=== PATIENT | male | born 1980 | race Hispanic/Latino ===

== ENCOUNTER 2017-06-06 13:26 | Emergency (ER) | payer OTHER, SELFPAY ==
[2017-06-06] MEDS ORDERED: NA CHLORIDE 0.9% 1,000 ML ONE (14:49)
--- NOTE | 2017-06-06 15:14 | RAD REPORT ---
EXAM DESCRIPTION: RAD - Chest Pa And Lat (2 Views) - 06/06/2017 3:04 pm CLINICAL HISTORY: Cough, sinus infection. COMPARISON: None. FINDINGS: The lungs are clear. The heart is normal in size. No displaced fractures. IMPRESSION: No acute or concerning finding suspected.
--- NOTE | 2017-06-06 16:25 | ER ---
Nurse's Notes [facility] Name: Francesco Marr Age: 36 yrs Sex: Male : 1980 Arrival Date: 06/06/2017 Time: 13:28 Bed 19 Private MD: Diagnosis: Malaise and fatigue;Bronchitis, not specified as acute or chronic Presentation: 06/06 13:35 Presenting complaint: Patient states: "i have been having some sinus congestion but the tw2 fatigue brought me in today, started Monday last week and i am feeling dizzy". Transition of care: patient was not received from another setting of care. Onset: The symptoms/episode began/occurred last week. Anaphylaxis evaluation, no signs or symptoms of anaphylaxis were noted. Onset of symptoms was June 06, 2017. Initial Sepsis Screen: Does the patient meet any 2 criteria? Does the patient have a suspected source of infection? No. Patient's initial sepsis screen is negative. Care prior to arrival: None. 13:35 Method Of Arrival: Ambulatory tw2 13:36 Acuity: LONA 3 tw2 Triage Assessment: 13:36 General: Appears in no apparent distress. Behavior is calm, cooperative, appropriate tw2 for age. Historical: - Allergies: 14:06 No Known Allergies; hj - Home Meds: 14:06 None [Active]; hj - PMHx: 14:06 testicular cancer; hj - PSHx: 14:06 testicle removed; hj - Immunization history:: Adult Immunizations up to date. - Social history:: Smoking status: Patient/guardian denies using tobacco, Patient/guardian denies using alcohol. - Family history:: not pertinent. - Hospitalizations: : No recent hospitalization is reported. Screenin:03 Abuse screen: Denies threats or abuse. Denies injuries from another. Nutritional hj screening: No deficits noted. Tuberculosis screening: No symptoms or risk factors identified. Fall Risk None identified. Assessment: 14:04 Pain: Denies pain. Respiratory: Airway is patent Respiratory effort is even, unlabored, hj Respiratory pattern is regular, symmetrical, Breath sounds are clear. 14:45 Reassessment: Patient and/or family updated on plan of care and expected duration. Pain hj level reassessed. Patient is alert, oriented x 3, equal unlabored respirations, skin warm/dry/pink. awaiting orders;. 15:45 Reassessment: Patient and/or family updated on plan of care and expected duration. Pain hj level reassessed. Patient is alert, oriented x 3, equal unlabored respirations, skin warm/dry/pink. Vital Signs: 13:36 BP 149 / 100; Pulse 114; Resp 20; Temp 98.6(O); Pulse Ox 95% on R/A; Weight 90.72 kg tw2 (R); Height 5 ft. 7 in. (170.18 cm); Pain 0/10; 14:46 BP 133 / 89; Pulse 115; Resp 18; Pulse Ox 100% on R/A; hj 16:03 BP 135 / 90; Pulse 99; Resp 18; Pulse Ox 100% on R/A; hj 13:36 Body Mass Index 31.32 (90.72 kg, 170.18 cm) tw2 ED Course: 13:28 Patient arrived in ED. tw3 13:36 Triage completed. tw2 13:39 Arm band placed on. tw2 13:58 Domingo Godfrey MD is Attending Physician. rn 14:01 Gonzalo Saenz RN is Primary Nurse. hj 14:07 Patient has correct armband on for positive identification. Placed in gown. Bed in low hj position. Call light in reach. Side rails up X 1. 15:01 Initial lab(s) drawn, by mi, sent to lab. Flu and/or RSV swab sent to lab. Strep swab mh5 sent to lab. Inserted saline lock: 22 gauge in right antecubital area, using aseptic technique. Blood collected. 15:02 [place] Screen Profile Sent. 5 15:02 Strep Sent. [facility] 15:02 Flu Sent. [facility] 15:03 X-ray completed. Portable x-ray completed in exam room. Patient tolerated procedure sw well. 15:05 XRAY Chest Pa And Lat (2 Views) In Process Unspecified. EDMS 16:59 No provider procedures requiring assistance completed. IV discontinued, intact, hj bleeding controlled, No redness/swelling at site. Pressure dressing applied. Administered Medications: 14:47 Drug: NS 0.9% 1000 ml Route: IV; Rate: 1000 ml; Site: right antecubital; hj 16:59 Follow up: IV Status: Completed infusion hj Outcome: 16:24 Discharge ordered by . rn 16:59 Discharged to home ambulatory, with family. hj 16:59 Condition: stable 16:59 Discharge instructions given to patient, family, Instructed on discharge instructions, follow up and referral plans. medication usage, Demonstrated understanding of instructions, follow-up care, medications, Prescriptions given X 2. 17:00 Patient left the ED. Signatures: Dispatcher [employer] EDMS Domingo Godfrey MD MD rn Warren, Shannon sw Joaquin, Henry, RN RN hj Wise, Tara, RN RN 2 Becca Schwab [address], [place] tw3 Corrections: (The following items were deleted from the chart) 13:36 13:35 Acuity: LONA 3 tw2 tw 13:39 13:35 Presenting complaint: Patient states: "i have been having some sinus congestion tw2 but the fatigue brought me in today, started Monday last week" tw 13:39 13:36 Acuity: LONA 4 tw2 tw2
--- NOTE | 2017-06-06 16:25 | EDPHYS ---
Physician Documentation [facility] Name: Fracnesco Marr Age: 36 yrs Sex: Male : 1980 Arrival Date: 06/06/2017 Time: 13:28 Bed 19 Private MD: ED Physician Domingo Godfrey HPI: 06/06 16:20 This 36 yrs old Male presents to ER via Ambulatory with complaints of general rn weakness, congestion. 16:20 Reports generalized weakness and cough/congestion, over last weak, family member with rn similar symptoms, reports able to go to work but just feels drained.. Onset: The symptoms/episode began/occurred 1 week(s) ago. Severity of symptoms: At their worst the symptoms were mild in the emergency department the symptoms are unchanged. The patient has not experienced similar symptoms in the past. The patient has not recently seen a physician. Historical: - Allergies: 14:06 No Known Allergies; hj - Home Meds: 14:06 None [Active]; hj - PMHx: 14:06 testicular cancer; hj - PSHx: 14:06 testicle removed; hj - Immunization history:: Adult Immunizations up to date. - Social history:: Smoking status: Patient/guardian denies using tobacco, Patient/guardian denies using alcohol. - Family history:: not pertinent. - Hospitalizations: : No recent hospitalization is reported. ROS: 16:20 Constitutional: Negative for fever, chills, and weight loss, Eyes: Negative for injury, rn pain, redness, and discharge, Neck: Negative for injury, pain, and swelling, Cardiovascular: Negative for chest pain, palpitations, and edema, Respiratory: Negative for wheezing, and pleuritic chest pain, Abdomen/GI: Negative for abdominal pain, nausea, vomiting, diarrhea, and constipation, Back: Negative for injury and pain, MS/Extremity: Negative for injury and deformity, Skin: Negative for injury, rash, and discoloration, Neuro: Negative for headache, numbness, tingling, and seizure. Exam: 16:20 Constitutional: This is a well developed, well nourished patient who is awake, alert, rn and in no acute distress. Head/Face: Normocephalic, atraumatic. Eyes: Pupils equal round and reactive to light, extra-ocular motions intact. Lids and lashes normal. Conjunctiva and sclera are non-icteric and not injected. Cornea within normal limits. Periorbital areas with no swelling, redness, or edema. ENT: no stridor, no oral lesions Neck: Trachea midline, no thyromegaly or masses palpated, and no cervical lymphadenopathy. Supple, full range of motion without nuchal rigidity, or vertebral point tenderness. No Meningismus. Cardiovascular: Regular rate and rhythm with a normal S1 and S2. No gallops, murmurs, or rubs. Normal PMI, no JVD. No pulse deficits. Respiratory: Lungs have equal breath sounds bilaterally, clear to auscultation and percussion. No rales, rhonchi or wheezes noted. No increased work of breathing, no retractions or nasal flaring. Abdomen/GI: Soft, non-tender, with normal bowel sounds. No distension or tympany. No guarding or rebound. No evidence of tenderness throughout. MS/ Extremity: Pulses equal, no cyanosis. Neurovascular intact. Full, normal range of motion. Equal circumference. Neuro: Awake and alert, GCS 15, oriented to person, place, time, and situation. Cranial nerves II-XII grossly intact. Motor strength 5/5 in all extremities. Sensory grossly intact. Cerebellar exam normal. Normal gait. Vital Signs: 13:36 BP 149 / 100; Pulse 114; Resp 20; Temp 98.6(O); Pulse Ox 95% on R/A; Weight 90.72 kg tw2 (R); Height 5 ft. 7 in. (170.18 cm); Pain 0/10; 14:46 BP 133 / 89; Pulse 115; Resp 18; Pulse Ox 100% on R/A; hj 16:03 BP 135 / 90; Pulse 99; Resp 18; Pulse Ox 100% on R/A; hj 13:36 Body Mass Index 31.32 (90.72 kg, 170.18 cm) tw2 MDM: 13:58 Patient medically screened. rn 16:20 Differential Diagnosis mono, flu, pneumonia. 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 Counseling: I had a detailed discussion with the patient and/or guardian regarding: the historical points, exam findings, and any diagnostic results supporting the discharge/admit diagnosis, lab results, radiology results, the need for outpatient follow up, to return to the emergency department if symptoms worsen or persist or if there are any questions or concerns that arise at home. Special discussion: I discussed with the patient/guardian in detail that at this point there is no indication for admission to the hospital. It is understood, however, that if the symptoms persist or worsen the patient needs to return immediately for re-evaluation. 06/06 14:46 Order name: Flu; Complete Time: 16:19 rn 06/06 14:46 Order name: Strep; Complete Time: 16:19 rn 06/06 14:46 Order name: [place] Screen Profile; Complete Time: 16:19 rn 06/06 14:46 Order name: XRAY Chest Pa And Lat (2 Views); Complete Time: 15:16 rn 06/06 15:35 Order name: Throat Culture EDAZ 06/06 14:21 Order name: EKG; Complete Time: 14:21 06/06 14:46 Order name: IV Start; Complete Time: 15:10 rn Administered Medications: 14:47 Drug: NS 0.9% 1000 ml Route: IV; Rate: 1000 ml; Site: right antecubital; 16:59 Follow up: IV Status: Completed infusion hj Disposition: 06/06/17 16:24 Discharged to Home. Impression: Malaise and fatigue, Bronchitis, not specified as acute or chronic. - Condition is Stable. - Discharge Instructions: Acute Bronchitis. - Prescriptions for Zithromax Z- Amado 250 mg Oral Tablet - take 1 tablet by ORAL route as directed for 5 days Day 1 - take two (2) tablets one time. Day 2, 3, 4 , 5 take one (1) tablet once daily.; 6 tablet. Albuterol Sulfate 90 mcg/actuation - inhale 1-2 puff by INHALATION route every 4-6 hours; 1 Inhaler. - Medication Reconciliation Form, Thank You Letter, Antibiotic Education, Prescription Opioid Use, Work release form form. - Follow up: Private Physician; When: As needed; Reason: Recheck today's complaints, Re-evaluation by your physician. - Problem is an ongoing problem. - Symptoms have improved. Signatures: Dispatcher [employer] [facility] Domingo Godfrey MD MD rn Joaquin, Henry, RN RN hj Corrections: (The following items were deleted from the chart) 16:22 16:20 Constitutional: This is a well developed, well nourished patient who is awake, rn alert, and in no acute distress. Head/Face: Normocephalic, atraumatic. Eyes: Pupils equal round and reactive to light, extra-ocular motions intact. Lids and lashes normal. Conjunctiva and sclera are non-icteric and not injected. Cornea within normal limits. Periorbital areas with no swelling, redness, or edema. Neck: Trachea midline, no thyromegaly or masses palpated, and no cervical lymphadenopathy. Supple, full range of motion without nuchal rigidity, or vertebral point tenderness. No Meningismus. Cardiovascular: Regular rate and rhythm with a normal S1 and S2. No gallops, murmurs, or rubs. Normal PMI, no JVD. No pulse deficits. Respiratory: Lungs have equal breath sounds bilaterally, clear to auscultation and percussion. No rales, rhonchi or wheezes noted. No increased work of breathing, no retractions or nasal flaring. Abdomen/GI: Soft, non-tender, with normal bowel sounds. No distension or tympany. No guarding or rebound. No evidence of tenderness throughout. MS/ Extremity: Pulses equal, no cyanosis. Neurovascular intact. Full, normal range of motion. Equal circumference. Neuro: Awake and alert, GCS 15, oriented to person, place, time, and situation. Cranial nerves II-XII grossly intact. Motor strength 5/5 in all extremities. Sensory grossly intact. Cerebellar exam normal. Normal gait. rn
[2017-06-06 17:04] VITALS: TEMP 98.6
[2017-06-06 17:05] VITALS: O2SAT 100
[2017-06-06 17:06] VITALS: BP 135/90
--- NOTE | 2017-06-07 06:58 | EKG ---
Test Date: 2017-06-06 Test Time: 14:21:38 Associate Professor Of Philosophy: STEPHAN MEASUREMENT RESULTS: Intervals: Rate: 108 AK: 144 QRSD: 74 QT: 292 QTc: 391 Parks: P: 59 AK: 144 QRS: -36 T: 55 INTERPRETIVE STATEMENTS: Sinus tachycardia Left axis deviation Abnormal ECG Compared to ECG 09/09/2016 17:36:33 Left-axis deviation now present Sinus rhythm no longer present Electronically Signed On 06-07-17 06:57:58 CDT by Shay Tariq
== END 2017-06-06 17:00 | disposition home or self-care (01) ==
LOC: ER 13:26
DX: J40 Bronchitis, not specified as acute or chronic (principal); R53.81 Other malaise; R53.83 Other fatigue; Z85.47 Personal history of malignant neoplasm of testis
CPT/HCPCS: 36415; 71046; 86308; 87070; 87081; 87804; 93005; 96360; 96361; 99284; J7030

== ENCOUNTER 2019-07-14 02:14 | Emergency (ER) | payer OTHER, SELFPAY ==
--- OUTSIDE RECORDS SUMMARY | 2019-07-14 02:23 | XMS REPORT | Summary of Care ---
:1980 Author Organization [facility] - [facility] Address [address] [place] [id number] Care Team Providers Name Role Phone Pcp, Does Not Have A Primary Care Provider Reason for Referral Radiology Services (STAT) Status Reason Specialty Diagnoses / Referred By Referred To Procedures Contact Contact New Request Diagnostic Diagnoses Chest pain, unspecified type Micheline Escobar Radiology Procedures Chest 1 View J, DO [address] [place] [id number] Reason for Visit Reason Comments Chest Pain Auth/Cert Status Reason Specialty Diagnoses / Referred By Referred To Procedures Contact Contact Emergency Medicine Diagnoses CHEST PAIN [facility] [address] [place] [address] [place] [phone] Fax: Encounter Details Date Type Department Care Team Description 04/17/2019 Emergency [facility]-Emergency Micheline Escobar, Chest p ain, Department DO unspecified type [address] (Primary Dx) [address] [phone] Allergies No Known Allergiesdocumented as of this encounter (statuses as of 04/17/2019) Medications Medication Sig Dispensed Refills Start Date End Date Status ibuprofen (MOTRIN) 600 Take 1 Tab by 21 Tab 0 09/10/2014 Active mg tablet mouth every 8 (eight) hours as needed for Pain (scale 4-6). GUAIFENESIN/PSEUDOEPHE Take by mouth. 0 Active DRNE HCL (MUCINEX D ORAL) documented as of this encounter (statuses as of 04/17/2019) Active Problems No known active problemsdocumented as of this encounter (statuses as of 04/17/2019) Social History Tobacco Use Types Packs/Day Years Used Date Never Smoker Smokeless Tobacco: Never Used Alcohol Use Drinks/Week oz/Week Comments Yes occasionally Sex Assigned at Date Recorded Not on file Job Start Date Occupation Industry Not on file Not on file Not on file Travel History Travel Start Travel End No recent travel history available. documented as of this encounter Last Filed Vital Signs Vital Sign Reading Time Taken Comments Blood Pressure 129/81 04/17/2019 1:00 AM [employer] Pulse 81 04/17/2019 1:00 AM [employer] Temperature 37.2 C (98.9 F) 04/17/2019 12:22 AM [employer] Respiratory Rate 17 04/17/2019 1:00 AM [employer] Oxygen Saturation 97% 04/17/2019 1:00 AM [employer] Inhaled Oxygen Concentration - - Weight 99.8 kg (220 lb) 04/17/2019 12:22 AM [employer] Height - - Body Mass Index 34.46 08/08/2016 6:13 PM CDT documented in this encounter Discharge Instructions Micheline Lopez DO - 04/17/2019DIAGNOSIS 1. Chest Pain NO LIFE-THREATENING FINDINGS ON TODAY'S EXAM. PROCEDURES IN THE ER TODAY: Chest Xray Blood work EKG MEDICATIONS ADMINISTERED IN THE ER TODAY: Toradol YOUR PRESCRIPTIONS AND [id number] MEDICATION RECOMMENDATIONS: None SPECIAL CARE INSTRUCTIONS: None FOLLOW-UP RECOMMENDATIONS: RECOMMEND FOLLOW-UP WITH A PRIMARY CARE PROVIDER OR SPECIALIST IN 2-5 DAYS, ESPECIALLY IF NO IMPROVEMENT IN SYMPTOMS. TO FOLLOW-UP WITHIN THE [facility], TRY THESE OPTIONS (CLINIC APPOINTMENTS AVAILABLE ON [id number] BASIS): 1. SCHEDULE AN APPOINTMENT ONLINE AT [email or web address] 2. OR CALL THE [facility] ACCESS CENTER AT OR 3. OR CALL YOUR [facility] PHYSICIAN'S OFFICE DIRECTLY IF YOU ARE ALREADY AN ESTABLISHED [facility] PATIENT. OR, YOU MAY FOLLOW-UP WITH A PROVIDER OF YOUR CHOICE, SUCH : 1. A PHYSICIAN OF YOUR CHOICE 2. [facility] AND [facility], . LOCATIONS IN [facility] 3. [facility], [address], [place]; [phone] RETURN TO ER FOR WORSENING OF SYMPTOMS. AttachmentsThe following attachments cannot be sent through Care Everywhere. Chest Pain, Noncardiac (Tuvaluan)documented in this encounter Plan of Treatment Health Maintenance Due Date Last Done Comments VARICELLA VACCINES (1 of 2 - 06/17/1983 2-dose childhood series) DTaP,Tdap,and Td Vaccines ( - 1993 Tdap) INFLUENZA VACCINE (#1) 2018 PNEUMOCOCCAL 0-64 YEARS COMBINED Aged Out No longer eligible based on SERIES patient's age to complete this topic documented as of this encounter Procedures Procedure Name Priority Date/Time Associated Diagnosis Comme nts XR CHEST 1 VW STAT 04/17/2019 12:52 Chest pain, Results fo r this AM [employer] unspecified type procedure a re in the results section. CBC WITH DIFFERENTIAL STAT 04/17/2019 12:34 Chest pain, Re sults for this AM [employer] unspecified type procedure a re in the results section. CBC WITH DIFFERENTIAL Routine 04/17/2019 12:34 Chest pain, Re sults for this AM [employer] unspecified type procedure a re in the results section. BASIC METABOLIC PANEL STAT 04/17/2019 12:34 Chest pain, Re sults for this (NA, K, CL, CO2, AM [employer] unspecified type procedu re are in GLUCOSE, BUN, the results CREATININE, CA) section. TROPONIN I STAT 04/17/2019 12:34 Chest pain, Results for this AM [employer] unspecified type procedure a re in the results section. EKG-12 LEAD STAT 04/17/2019 12:31 AM [employer] NOTICE OF PRIVACY Routine 04/17/2019 12:12 PRACTICES AM [employer] CONSENT/REFUSAL FOR Routine 04/17/2019 12:11 DIAGNOSIS AND AM [employer] TREATMENT documented in this encounter Results Chest 1 View (04/17/2019 12:52 AM [employer]) Specimen Impressions Performed At PACS/VR/DOSE No acute cardiopulmonary process. RL: [id number] AFC: [id number] 1: 00 AM Narrative Performed At Patient name: FRANCESCO ARDON PACS/VR/DOSE : 1980 38 years EXAMINATION: XR CHEST 1 VW Ordering Physician: MICHELINE ESCOBAR CLINICAL HISTORY: chest pain COMPARISON: None TECHNIQUE: Single frontal view of the chest was per formed. FINDINGS: Normal lung volumes. No focal infiltrate or consolidat ion. No effusion or pneumothorax. Heart size is normal without edema. Norm al aortic contours. No acute osseous abnormality. Procedure Note [facility], Radiant Results Inft User - 2019 1:01 AM [employer] Patient name: FRANCESCO ARDON : 1980 38 years EXAMINATION: XR CHEST 1 VW Ordering Physician: MICHELINE ESCOBAR CLINICAL HISTORY: chest pain COMPARISON: None TECHNIQUE: Single frontal view of the chest was per formed. FINDINGS: Normal lung volumes. No focal infiltrate or consolidation. No effusion or pneumothorax. Heart size is normal witho ut edema. Normal aortic contours. No acute osseous abnormality. IMPRESSION No acute cardiopulmonary process. RL: [id number] AFC: [id number] Performing Organization Address City/State/Zipcode Phone Number PACS/VR/DOSE CBC WITH DIFFERENTIAL (04/17/2019 12:34 AM [employer]) Pathologist Sig nature WBC 10.10 4.20 - 10.70 [facility] 10*3/L [facility] RBC 6.05 (H) 4.26 - 5.52 [facility] 10*6/L [facility] HGB 18.1 (H) 12.2 - 16.4 [facility] g/dL [facility] HCT 52.9 (H) 38.4 - 49.3 % [facility] MCV 87.4 81.7 - 95.6 fL [facility] MCH 29.9 26.1 - 32.7 pg [facility] MCHC 34.2 31.2 - 35.0 [facility] g/dL [facility] RDW-SD 43.4 38.5 - 51.6 fL [facility] RDW-CV 13.8 12.1 - 15.4 % [facility] PLT 240 150 - 328 [facility] 10*3/L [facility] MPV 8.4 (L) 9.8 - 13.0 fL [facility] NRBC/100 WBC 0.0 0.0 - 10.0 /100 [facility] WBCs [facility] NRBC x10^3 <0.01 10*3/L [facility] GRAN MAT (NEUT) % 64.7 % [facility] IMM GRAN % 0.60 % [facility] LYMPH % 25.1 % [facility] MONO % 8.6 % [facility] EOS % 0.6 % [facility] BASO % 0.4 % [facility] GRAN MAT x10^3(ANC) 6.53 1.99 - 6.95 [facility] 10*3/uL [facility] IMM GRAN x10^3 0.06 0.00 - 0.06 [facility] 10*3/uL [facility] LYMPH x10^3 2.54 1.09 - 3.23 [facility] 10*3/uL [facility] MONO x10^3 0.87 0.36 - 1.02 [facility] 10*3/uL [facility] EOS x10^3 0.06 0.06 - 0.53 [facility] 10*3/uL [facility] BASO x10^3 0.04 0.01 - 0.09 [facility] 103/uL [facility] Specimen Blood - VENOUS Performing Organization Address City/State/Zipcode Phone Number [facility] CLIA: [id number], [address] [place] [address] Troponin I (04/17/2019 12:34 AM [employer]) Pathologist Sig nature TROPONIN I 0.007 <=0.034 ng/mL [facility] Specimen Blood - VENOUS Narrative Performed At Equal or Less than 0.034 ng/ml---Normal [facility] Note: Cardiac troponin begins to rise 3-4 hours after the onset of ischemia. Repeat in 4-6 hours if the sample was drawn within 3-4 hours of the onset of the symptom and found normal. Between 0.035 and 0.120 ng/mL--- Borderline. Questionable myocardial injury or necros is Note: Serial measurement may be necessary to confirm or exclude the diagnosis of myocardial injury or necrosis; Clinical correlation (symptoms, EKGs, imaging studies, and others) required; Repeat in 4-6 hours if clinically indicated. Equal or Higher than 0.121 ng/mL---Abnormal. Myocardial Injury or Necrosis Likely Biotin has been reported to cause a negative bias, interpret results relative to patient's use of biotin. Performing Organization Address City/State/Zipcode Phone Number [facility] CLIA: [id number], [address] [place] [address] Basic Metabolic Panel (NA, K, CL, CO2, GLUCOSE, BUN, CREATININE, CA) (04/17/2019 12:34 AM [employer]) NA 138 135 - 145 [facility] mmol/L [facility] K 3.7 3.5 - 5.0 [facility] mmol/L [facility] CL 105 98 - 108 mmol/L [facility] CO2 TOTAL 25 23 - 31 mmol/L [facility] AGAP 8 2 - 16 [facility] BUN 21 7 - 23 mg/dL [facility] [place] GLUCOSE 112 (H) 70 - 110 mg/dL [facility] [place] [place] CREATININE 1.68 (H) 0.60 - 1.25 [facility] mg/dL [facility] CALCIUM 9.2 8.6 - 10.6 [facility] mg/dL [facility] eGFR Calculation 46.5 mL/min/1.73m2 [facility] ([facility] [place]) eGFR Calculation 56.3 mL/min/1.73m2 [facility] () [facility] Specimen Blood - VENOUS Narrative Performed At Association of Glomerular Filtration Rate (GFR) [facility] and Staging of Kidney Disease* + + +- + | GFR (mL/min/1.73 m2) | With Kidney Damage | Without Kidney Damage + + +- + | >90 | Stage one | Normal + + +- + | 60-89 | Stage two | Decreased GFR + + +- + | 30-59 | Stage three | Stage three + + +- + | 15-29 | Stage four | Stage four + + +- + | <15 (or dialysis) | Stage five | Stage five + + +- + *Each stage assumes the associated GFR level has been in effect for at least three months. Stages 1 to 5, with or without kidney disease, indicate chronic kidney disease. Notes: Determination of stages one and two (with eGFR >59mL/min/1.73 m2) requires estimation of kidney damage for at least three months as defined by structural or functional abnormalities of the kidney, manifested by either: Pathological abnormalities or Markers of kidney damage (including abnormalities in the composition of the blood or urine or abnormalities in imaging tests). Performing Organization Address City/State/Zipcode Phone Number [facility] CLIA: [id number], [address] [place], [place] [address] documented in this encounter Visit Diagnoses Diagnosis Chest pain, unspecified type - Primary documented in this encounter Administered Medications Medication Order MAR Action Action Date Dose Rate Site ketorolac (TORADOL) injection 30 Given 04/17/2019 12:34 AM [employer] 3 0 mg mg 30 mg, Slow IV Push, ONCE, 1 dose, Mon04/17/19 at 0045, ALEXANDRE, science faculty member approving Restricted medication: MICHELINE ESCOBAR documented in this encounter documented as of this encounter"
--- OUTSIDE RECORDS SUMMARY | 2019-07-14 02:23 | XMS REPORT ---
:1980 Author Organization [facility] t Address [address] [place] [place] [address] Care Team Providers Name Role Phone True Redding DO Attending Clinician Problems This patient has no known problems. Allergies, Adverse Reactions, Alerts This patient has no known allergies or adverse reactions. Medications This patient has no known medications. Procedures This patient has no known procedures. Encounters Start End Encounter Admission Attending Care Care Encounter Source Date/Time Date/Time Type Type Clinicians Facility Department ID 2019-04-17 2019-04-17 Emergency Vahid [facility] [id number] 00:20:51 01:34:00 Micheline Aguirre [id number] [place] [id number] [place] [id number] Results This patient has no known results.
[2019-07-14 03:42] LABS: Absolute Lymphocytes (CBC) 1.8 K/uL (0.7-4.9); Basophils % 0.5 % (0-1.3); Lymphocytes % 19.6 % (15.3-44.8); MPV 7.1 fL (7.6-11.3); RBC Red Blood Cell Count 6.03 M/uL (4.33-5.43)
[2019-07-14 04:01] LABS: ALT/SGPT 55 U/L (12-78); AST/SGOT 35 U/L (15-37); Albumin 3.2 g/dL (3.4-5.0); Alkaline Phosphatase 76 U/L (45-117); BUN Blood Urea Nitrogen 12 mg/dL (7-18); Bicarbonate 25 mmol/L (21-32); Bilirubin Direct 0.1 mg/dL (0-0.2); Bilirubin Total 0.3 mg/dL (0.2-1.0); Glucose Level 133 mg/dL (74-106); Magnesium 2.1 mg/dL (1.8-2.4); NT PRO-BNP 25 pg/mL (<125); Potassium 3.9 mmol/L (3.5-5.1); Protein, Total 7.6 g/dL (6.4-8.2); Sodium Level 139 mmol/L (136-145); Troponin (Emerg Dept Use Only) < 0.02 ng/mL (0.0-0.045)
[2019-07-14] MEDS ORDERED: MORPHINE 4 MG/ML SYR ONE (04:11)
[2019-07-14] MEDS ORDERED: ONDANSETRON 4 MG/2 ML VIAL ONE (04:11)
[2019-07-14 04:52] LABS: Barbiturates NEGATIVE (NEGATIVE); Benzodiazepines NEGATIVE (NEGATIVE); Cocaine NEGATIVE (NEGATIVE); METHAMPHETAM NEGATIVE (NEGATIVE); Methadone NEGATIVE (NEGATIVE); Opiates NEGATIVE (NEGATIVE); Phencyclidine NEGATIVE (NEGATIVE); THC Cannibis NEGATIVE (NEGATIVE)
[2019-07-14] MEDS ORDERED: NA CHLORIDE 0.9% 1,000 ML ONE (06:07)
--- NOTE | 2019-07-14 07:15 | RAD REPORT ---
EXAM DESCRIPTION: CT - Chest For Pe Angio - 07/14/2019 7:01 am CLINICAL HISTORY: sob COMPARISON: 2014 TECHNIQUE: Dynamically enhanced axial 3 mm thick images of the chest were obtained during administra tion of <100> mL Isovue 370 IV contrast. Coronal and oblique reconstruction images were generated and reviewed. Exam utilizes a protocol for optimal evaluation of pulmonary arterial tree. Maximum intensity projections 3D imaging was utilized All CT scans are performed using dose optimization technique as appropriate and may include automated exposure control or mA/KV adjustment according to patient size. FINDINGS: A pulmonary embolus is not seen. A thoracic aortic aneurysm is not noted. A pleural effusion is not seen. A pericardial effusion is not seen. A lung consolidation is not present. IMPRESSION: Negative for a pulmonary embolism.
[2019-07-14] MEDS ORDERED: LEVALBUTEROL 1.25 MG/3 ML NEB ONE (07:52)
[2019-07-14] MEDS ORDERED: DIAZEPAM 5 MG TABLET ONE (08:17)
[2019-07-14 09:06] VITALS: TEMP 98.2
[2019-07-14 09:15] VITALS: BP 125/60; O2SAT 99
--- NOTE | 2019-07-14 11:46 | RAD REPORT ---
EXAM DESCRIPTION: Ac Single View07/14/2019 4:01 am CLINICAL HISTORY: Chest pain COMPARISON: 2017 FINDINGS: The lungs appear clear of acute infiltrate. The heart is normal size IMPRESSION: No acute abnormalities displayed
--- NOTE | 2019-07-14 14:05 | EKG ---
Test Date: 2019-07-14 Test Time: 03:14:28 Specimen Collector: BERTO MEASUREMENT RESULTS: Intervals: Rate: 87 DC: 144 QRSD: 84 QT: 328 QTc: 394 [place]: P: 72 DC: 144 QRS: -25 T: 37 INTERPRETIVE STATEMENTS: Normal sinus rhythm Normal ECG Electronically Signed On 07-14-19 14:04:40 CDT by Yovanny Mendoza
--- NOTE | 2019-07-15 18:44 | EDPHYS ---
Physician Documentation [facility] Name: Francesco Marr Age: 39 yrs Sex: Male : 1980 Arrival Date: 07/14/2019 Time: 02:16 Bed 7 Private MD: ED Physician Vince Lackey HPI: 07/13 04:38 This 39 yrs old Male presents to ER via Ambulatory with complaints of mh7 Shortness Of Breath. 04:38 The patient has shortness of breath at rest. Onset: The symptoms/episode began/occurred mh7 yesterday. Duration: The symptoms are intermittent, with no pattern. The patient's shortness of breath is aggravated by nothing, is alleviated by nothing. Associated signs and symptoms: Pertinent positives: chest pain, Pertinent negatives: non-productive cough, productive cough, diaphoresis, dizziness, fever, hemoptysis, loss of consciousness, nausea, numbness in extremities, visual changes, vomiting. Severity of symptoms: At their worst the symptoms were moderate yesterday, in the emergency department the symptoms have improved mildly. Historical: - Allergies: 03:08 No Known Allergies; rr5 - Home Meds: 03:08 Hydroxyzine Oral [Active]; rr5 - PMHx: 03:08 testicular cancer; Anxiety; Sleep Apnea; rr5 - PSHx: 03:08 testicle removed; rr5 - Immunization history:: Adult Immunizations not up to date. - Social history:: Smoking status: unknown Patient uses alcohol, occasionally. Patient/guardian denies using street drugs. ROS: 04:38 Constitutional: Negative for fever, chills, and weight loss, Eyes: Negative for injury, mh7 pain, redness, and discharge, ENT: Negative for injury, pain, and discharge, Neck: Negative for injury, pain, and swelling, Abdomen/GI: Negative for abdominal pain, nausea, vomiting, diarrhea, and constipation, Back: Negative for injury and pain, : Negative for injury, bleeding, discharge, and swelling, MS/Extremity: Negative for injury and deformity, Skin: Negative for injury, rash, and discoloration, Neuro: Negative for headache, weakness, numbness, tingling, and seizure, Psych: Negative for depression, anxiety, suicide ideation, homicidal ideation, and hallucinations, Allergy/Immunology: Negative for hives, rash, and allergies, Endocrine: Negative for neck swelling, polydipsia, polyuria, polyphagia, and marked weight changes, Hematologic/Lymphatic: Negative for swollen nodes, abnormal bleeding, and unusual bruising. Exam: 04:38 Constitutional: This is a well developed, well nourished patient who is awake, alert, mh7 and in no acute distress. Head/Face: Normocephalic, atraumatic. Eyes: Pupils equal round and reactive to light, extra-ocular motions intact. Lids and lashes normal. Conjunctiva and sclera are non-icteric and not injected. Cornea within normal limits. Periorbital areas with no swelling, redness, or edema. Neck: Trachea midline, no thyromegaly or masses palpated, and no cervical lymphadenopathy. Supple, full range of motion without nuchal rigidity, or vertebral point tenderness. No Meningismus. Chest/axilla: Normal chest wall appearance and motion. Nontender with no deformity. No lesions are appreciated. Cardiovascular: Regular rate and rhythm with a normal S1 and S2. No gallops, murmurs, or rubs. Normal PMI, no JVD. No pulse deficits. Respiratory: Lungs have equal breath sounds bilaterally, clear to auscultation and percussion. No rales, rhonchi or wheezes noted. No increased work of breathing, no retractions or nasal flaring. Abdomen/GI: Soft, non-tender, with normal bowel sounds. No distension or tympany. No guarding or rebound. No evidence of tenderness throughout. Back: No spinal tenderness. No costovertebral tenderness. Full range of motion. Skin: Warm, dry with normal turgor. Normal color with no rashes, no lesions, and no evidence of cellulitis. MS/ Extremity: Pulses equal, no cyanosis. Neurovascular intact. Full, normal range of motion. Neuro: Awake and alert, GCS 15, oriented to person, place, time, and situation. Cranial nerves II-XII grossly intact. Motor strength 5/5 in all extremities. Sensory grossly intact. Cerebellar exam normal. Normal gait. Psych: Awake, alert, with orientation to person, place and time. Behavior, mood, and affect are within normal limits. Vital Signs: 03:08 BP 118 / 70; Pulse 93; Resp 19; Temp 98.2; Pulse Ox 98% ; Weight 90.72 kg; Height 5 ft. rr5 7 in. (170.18 cm); Pain 7/10; 04:25 BP 137 / 82; Pulse 88; Resp 16; Pulse Ox 99% on R/A; rv 04:49 BP 117 / 73; Pulse 75; Resp 16; Pulse Ox 99% on R/A; rr5 05:30 BP 129 / 83; Pulse 97; Resp 14; Pulse Ox 97% on R/A; rv 06:30 BP 135 / 82; Pulse 95; Resp 14; Pulse Ox 96% on R/A; rv 07:18 BP 133 / 67; Pulse 107; Resp 14; Pulse Ox 95% ; sv 08:16 BP 133 / 65; Pulse 86; Resp 22; Pulse Ox 97% on R/A; sv 08:57 BP 125 / 60; Pulse 84; Resp 16; Pulse Ox 99% ; sv 03:08 Body Mass Index 31.32 (90.72 kg, 170.18 cm) rr5 Jens Coma Score: 08:57 Eye Response: spontaneous(4). Verbal Response: oriented(5). Motor Response: obeys sv commands(6). Total: 15. MDM: 03:32 Patient medically screened. [facility] 14:32 Data reviewed: vital signs, nurses notes, lab test result(s), radiologic studies. kdr Counseling: I had a detailed discussion with the patient and/or guardian regarding: the historical points, exam findings, and any diagnostic results supporting the discharge/admit diagnosis, lab results, radiology results, the need for outpatient follow up. 07/13 03:16 Order name: Basic Metabolic Panel; Complete Time: 05:13 07/13 03:16 Order name: CBC with Diff; Complete Time: 05:13 07/13 03:16 Order name: LFT's; Complete Time: 05:13 07/13 03:16 Order name: Magnesium; Complete Time: 05:13 07/13 03:16 Order name: NT PRO-BNP; Complete Time: 05:13 07/13 03:16 Order name: PT-INR; Complete Time: 05:13 07/13 03:16 Order name: Troponin (emerg Dept Use Only); Complete Time: 05:13 07/13 03:16 Order name: XRAY Chest (1 view) rr5 07/13 03:41 Order name: UDS; Complete Time: 05:13 7 07/13 05:13 Order name: CPK; Complete Time: 05:54 7 07/13 06:36 Order name: CT Chest For PE Angio; Complete Time: 07:53 7 07/13 08:08 Order name: Troponin (emerg Dept Use Only); Complete Time: 08:43 sv 07/13 03:16 Order name: EKG; Complete Time: 03:17 rr5 07/13 03:16 Order name: Cardiac monitoring; Complete Time: 03:19 rr5 07/13 03:16 Order name: EKG - Nurse/Tech; Complete Time: 03:19 rr5 07/13 03:16 Order name: IV Saline Lock; Complete Time: 03:26 rr5 07/13 03:16 Order name: Labs collected and sent; Complete Time: 03:26 rr5 07/13 03:16 Order name: O2 Per Protocol; Complete Time: 03:19 rr5 07/13 03:16 Order name: O2 Sat Monitoring; Complete Time: 03:19 rr5 Administered Medications: 04:10 Drug: morphine 2 mg {Note: RASS 0.} Route: IVP; Site: right forearm; rv 06:04 Follow up: Response: No adverse reaction; RASS: Alert and Calm (0) rv 04:10 Drug: Zofran (Ondansetron) 4 mg Route: IVP; Site: right forearm; rv 06:04 Follow up: Response: No adverse reaction rv 06:04 Drug: NS 0.9% 1000 ml Route: IV; Rate: 1000 ml; Site: right forearm; rv 07:09 Follow up: IV Status: Completed infusion; IV Intake: 1000ml rv 07:48 Drug: Xopenex 1.25 mg Route: Inhalation; sv 08:15 Drug: Valium 5 mg Route: PO; sv 08:57 Follow up: Response: No adverse reaction; Marked relief of symptoms sv Disposition: 07/14/19 08:43 Discharged to Home. Impression: Shortness of breath, Dyspnea. - Condition is Stable. - Discharge Instructions: Shortness of Breath, Fuxb-lk-Oedi, Generalized Anxiety Disorder. - Prescriptions for Valium 5 mg Oral Tablet - take 1 tablet by ORAL route every 8 hours As needed; 6 tablet. - Medication Reconciliation Form, Thank You Letter, SBAR form form. - Follow up: Private Physician; When: 2 - 3 days; Reason: If symptoms return, Further diagnostic work-up, Recheck today's complaints, Continuance of care, Re-evaluation by your physician. - Problem is an acute exacerbation. - Symptoms have improved. Signatures: Dispatcher [employer] Angelique Andrews RN RN sv Vince Lackey MD MD kdr Orlando Ayala RN RN Yobani Borges RN RN rr5 Robb Arenas MD MD 7 Corrections: (The following items were deleted from the chart) 08:59 08:43 07/14/2019 08:43 Discharged to Home. Impression: Shortness of breath; Dyspnea. sv Condition is Stable. Forms are SBAR form, Medication Reconciliation Form, Thank You Letter, Antibiotic Education, Prescription Opioid Use. Follow up: Private Physician; When: 2 - 3 days; Reason: If symptoms return, Further diagnostic work-up, Recheck today's complaints, Continuance of care, Re-evaluation by your physician. Problem is an acute exacerbation. Symptoms have improved. kdr
--- NOTE | 2019-07-15 18:44 | ER ---
Nurse's Notes [facility] Name: Francesco Marr Age: 39 yrs Sex: Male : 1980 Arrival Date: 07/14/2019 Time: 02:16 Bed 7 Private MD: Diagnosis: Shortness of breath;Dyspnea Presentation: 07/13 02:45 Acuity: LONA 3 sg 03:08 Chief complaint: Patient states: I am having Shortness of breath started yesterday rr5 morning recently diagnose sleep apnea. having chest tightness for 2 days on and off. Coronavirus screen: Proceed with normal triage. Patient denies a cough. Patient reports shortness of breath or difficulty breathing. Patient denies measured and/or subjective temperature greater than 100.4F prior to today's visit. Patient denies travel on a cruise ship or to a country the [facility] currently lists as an affected area. Patient denies contact with known and/or suspected case of COVID-19. Ebola Screen: Patient negative for fever greater than or equal to 101.5 degrees Fahrenheit, and additional compatible Ebola Virus Disease symptoms Patient denies exposure to infectious person. Patient denies travel to an Ebola-affected area in the 21 days before illness onset. Initial Sepsis Screen: Does the patient meet any 2 criteria? No. Patient's initial sepsis screen is negative. Does the patient have a suspected source of infection? No. Patient's initial sepsis screen is negative. Risk Assessment: Do you want to hurt yourself or someone else? Patient reports no desire to harm self or others. Onset of symptoms was July 12, 2019. 03:08 Method Of Arrival: Ambulatory rr5 03:08 Acuity: LONA 3 rr5 Triage Assessment: 04:25 General: Appears comfortable. Respiratory: the patient has mild shortness of breath. rv Historical: - Allergies: 03:08 No Known Allergies; rr5 - Home Meds: 03:08 Hydroxyzine Oral [Active]; rr5 - PMHx: 03:08 testicular cancer; Anxiety; Sleep Apnea; rr5 - PSHx: 03:08 testicle removed; rr5 - Immunization history:: Adult Immunizations not up to date. - Social history:: Smoking status: unknown Patient uses alcohol, occasionally. Patient/guardian denies using street drugs. Screenin:12 Abuse screen: Denies threats or abuse. Denies injuries from another. Nutritional rr5 screening: No deficits noted. Tuberculosis screening: No symptoms or risk factors identified. Fall Risk IV access (20 points). Total Guillen Fall Scale indicates No Risk (0-24 pts). Assessment: 02:45 General: Appears in no apparent distress. uncomfortable, Behavior is calm, cooperative, rr5 appropriate for age. 02:45 Pain: Complains of pain in chest Pain radiates to left neck Pain currently is 7 out of rr5 10 on a pain scale. Quality of pain is described as aching, Pain began gradually, 2-3 days ago. Is intermittent. Neuro: Level of Consciousness is awake, alert, obeys commands, Oriented to person, place, time, situation, Appropriate for age. Cardiovascular: Reports chest pain, Capillary refill < 3 seconds Patient's skin is warm and dry. Rhythm is sinus rhythm. Respiratory: Reports shortness of breath Airway is patent Respiratory effort is even, unlabored, Respiratory pattern is regular, symmetrical, Breath sounds are clear. GI: No signs and/or symptoms were reported involving the gastrointestinal system. : No signs and/or symptoms were reported regarding the genitourinary system. EENT: No signs and/or symptoms were reported regarding the EENT system. Derm: Skin is intact, is healthy with good turgor, Skin temperature is warm. Musculoskeletal: Circulation, motion, and sensation intact. Capillary refill < 3 seconds. 03:20 Reassessment: Patient appears in no apparent distress at this time. No changes from rr5 previously documented assessment. Patient is alert, oriented x 3, equal unlabored respirations, skin warm/dry/pink. 04:50 Reassessment: Patient appears in no apparent distress at this time. Patient is alert, rr5 oriented x 3, equal unlabored respirations, skin warm/dry/pink. awaiting for results. 07:41 General: Appears in no apparent distress. uncomfortable, Behavior is calm, cooperative, sv appropriate for age. Pain: Complains of pain in mid-sternal area. Neuro: Level of Consciousness is awake, alert, obeys commands, Oriented to person, place, time, situation, Appropriate for age Moves all extremities. Full function. Cardiovascular: Rhythm is sinus rhythm. Respiratory: Reports shortness of breath at rest Informed Dr Lackey, pt's SOB has not improved, medication order given. Airway is patent Respiratory effort is even, unlabored, Respiratory pattern is regular, symmetrical. Derm: Skin is pink, warm \T\ dry. Musculoskeletal: Range of motion: intact in all extremities. 07:54 Reassessment: Breathing tx done at this time, reports feeling the same. sv 08:10 Reassessment: Repeat troped sent. sv 08:10 Reassessment: Pt reports this his SOB has improved some and can breathe a little better sv after the breathing tx. 08:57 Reassessment: Patient appears in no apparent distress at this time. Patient and/or sv family updated on plan of care and expected duration. Pain level reassessed. Patient is alert, oriented x 3, equal unlabored respirations, skin warm/dry/pink. Patient states feeling better. Patient states symptoms have improved. Vital Signs: 03:08 BP 118 / 70; Pulse 93; Resp 19; Temp 98.2; Pulse Ox 98% ; Weight 90.72 kg; Height 5 ft. rr5 7 in. (170.18 cm); Pain 7/10; 04:25 BP 137 / 82; Pulse 88; Resp 16; Pulse Ox 99% on R/A; rv 04:49 BP 117 / 73; Pulse 75; Resp 16; Pulse Ox 99% on R/A; rr5 05:30 BP 129 / 83; Pulse 97; Resp 14; Pulse Ox 97% on R/A; rv 06:30 BP 135 / 82; Pulse 95; Resp 14; Pulse Ox 96% on R/A; rv 07:18 BP 133 / 67; Pulse 107; Resp 14; Pulse Ox 95% ; sv 08:16 BP 133 / 65; Pulse 86; Resp 22; Pulse Ox 97% on R/A; sv 08:57 BP 125 / 60; Pulse 84; Resp 16; Pulse Ox 99% ; sv 03:08 Body Mass Index 31.32 (90.72 kg, 170.18 cm) rr5 Jens Coma Score: 08:57 Eye Response: spontaneous(4). Verbal Response: oriented(5). Motor Response: obeys sv commands(6). Total: 15. ED Course: 02:16 Patient arrived in ED. ds1 02:45 Triage completed. sg 03:01 Robb Arenas MD is Attending Physician. mh7 03:05 Jamie, Orlando, RN is Primary Nurse. rv 03:12 Arm band placed on right wrist. rr5 03:12 Patient has correct armband on for positive identification. Placed in gown. Bed in low rr5 position. Call light in reach. Side rails up X2. ekg monitor tech on. Pulse ox on. NIBP on. 03:27 Initial lab(s) drawn, by me, sent to lab. EKG done, by ED staff, reviewed by Robb Arenas MD. Inserted saline lock: 18 gauge in right forearm, using aseptic technique. Blood collected. 04:02 XRAY Chest (1 view) In Process Unspecified. EDMS 07:01 CT Chest For PE Angio In Process Unspecified. EDMS 07:04 Primary Nurse role handed off by Orlando Ayala RN sv 07:04 Angelique Moralez RN is Primary Nurse. sv 07:21 Attending Physician role handed off by Robb Arenas MD kdr 07:21 Vince Lackey MD is Attending Physician. kdr 08:58 No provider procedures requiring assistance completed. IV discontinued, intact, sv bleeding controlled, No redness/swelling at site. Pressure dressing applied. Administered Medications: 04:10 Drug: morphine 2 mg {Note: RASS 0.} Route: IVP; Site: right forearm; rv 06:04 Follow up: Response: No adverse reaction; RASS: Alert and Calm (0) rv 04:10 Drug: Zofran (Ondansetron) 4 mg Route: IVP; Site: right forearm; rv 06:04 Follow up: Response: No adverse reaction rv 06:04 Drug: NS 0.9% 1000 ml Route: IV; Rate: 1000 ml; Site: right forearm; rv 07:09 Follow up: IV Status: Completed infusion; IV Intake: 1000ml rv 07:48 Drug: Xopenex 1.25 mg Route: Inhalation; sv 08:15 Drug: Valium 5 mg Route: PO; sv 08:57 Follow up: Response: No adverse reaction; Marked relief of symptoms sv Intake: 07:09 IV: 1000ml; Total: 1000ml. rv Outcome: 08:43 Discharge ordered by . kdr 08:58 Discharged to home ambulatory, pt has a ride home sv 08:58 Condition: stable 08:58 Discharge instructions given to patient, Instructed on discharge instructions, follow up and referral plans. medication usage, Demonstrated understanding of instructions, follow-up care, medications, Prescriptions given X 1. 08:59 Patient left the ED. sv Signatures: Dispatcher [employer] Angelique Andrews RN RN sv Taj Webb RN RN Vince Lakcey MD MD [facility] Sierra, Peggy ds1 Orlando Ayala RN RN Yobani Borges RN RN rr5 Robb Arenas MD MD 7 Corrections: (The following items were deleted from the chart) 07:22 07:18 BP 133 / 67; Pulse 107bpm; Resp 14bpm; sv sv 07:48 07:41 Respiratory: Airway is patent Respiratory effort is even, unlabored, Respiratory sv pattern is regular, symmetrical, sv
== END 2019-07-14 08:59 | disposition home or self-care (01) ==
LOC: ER 02:14
DX: R06.00 Dyspnea, unspecified (principal); Z85.47 Personal history of malignant neoplasm of testis
CPT/HCPCS: 96361; 93005; 85025; 80048; 36415; 83735; 82550; 85610; 80076; 80307 ×8; 84484 ×2; 83880; 71275; 71045; 96375; 96374; 99285; Q9967; J7030; J2405

== ENCOUNTER 2019-10-02 17:26 | Emergency (ER) | payer OTHER, SELFPAY ==
--- OUTSIDE RECORDS SUMMARY | 2019-10-02 17:28 | XMS REPORT | Summary of Care ---
:1980 Author Organization [facility] Address [address] [place] [address] Care Team Providers Name Role Phone Melissa, Medical [facility] Primary Care Provider [phone] Reason for Referral Radiology Services (STAT) Status Reason Specialty Diagnoses / Referred By Referred To Procedures Contact Contact New Request Diagnostic Diagnoses Shortness of breath Chest pain, unspecified type Tachypnea Vince Gillespie, Radiology Procedures XR CHEST 1 VW COVID XR CHEST 1 VW [employer] [address] [place] [address] MRI/CAT Scan (STAT) Status Reason Specialty Diagnoses / Referred By Referred To Procedures Contact Contact New Request Diagnostic Diagnoses Shortness of breath Chest pain, unspecified type Tachypnea Vince Gillespie, Radiology Procedures CT CHEST PULMONARY ANGIOGRAM [employer] [address] [place] [phone] Reason for Visit Reason Comments Shortness of Breath Chest Pain Auth/Cert Status Reason Specialty Diagnoses / Referred By Referred To Procedures Contact Contact Emergency Medicine [facility] Dept [address] [place] [address] Fax: Encounter Details Date Type Department Care Team Description 09/13/2019 - Emergency ADC-Emergency Vince Gillespie, NUHA Shortness of breath (Primary Dx); 09/14/2019 Department [address] [facility] Chest pain, unspecified type; [address] [place] [address] [address] ; [address] [phone] [place], [place] [id number] Allergies No Known Allergiesdocumented as of this encounter (statuses as of 09/14/2019) Medications Medication Sig Dispensed Refills Start Date End Date Status ibuprofen (MOTRIN) 600 Take 1 Tab by 21 Tab 0 09/10/2014 Active mg tablet mouth every 8 (eight) hours as needed for Pain (scale 4-6). GUAIFENESIN/PSEUDOEPHED Take by mouth. 0 Active RNE HCL (MUCINEX D ORAL) hydrOXYzine 25 mg Take 1 tablet by 16 tablet 0 09/14/2019 Active tabletIndications: mouth every 6 Anxiety (six) hours as needed for Anxiety. documented as of this encounter (statuses as of 09/14/2019) Active Problems No known active problemsdocumented as of this encounter (statuses as of 09/14/2019) Social History Tobacco Use Types Packs/Day Years Used Date Never Smoker Smokeless Tobacco: Never Used Alcohol Use Drinks/Week oz/Week Comments Yes occasionally Sex Assigned at Date Recorded Not on file Job Start Date Occupation Industry Not on file Not on file Not on file Travel History Travel Start Travel End No recent travel history available. COVID-19 Exposure Response Date Recorded In the last month, have you been in contact with No / Unsure 09/13/2019 10:51 PM CDT someone who was confirmed or suspected to have Coronavirus / COVID-19? documented as of this encounter Last Filed Vital Signs Vital Sign Reading Time Taken Comments Blood Pressure 137/84 09/14/2019 2:00 AM CDT Pulse 77 09/14/2019 2:00 AM CDT Temperature 36.8 C (98.2 F) 09/13/2019 10:54 PM CDT Respiratory Rate 18 09/14/2019 2:00 AM CDT Oxygen Saturation 96% 09/14/2019 2:00 AM CDT Inhaled Oxygen Concentration - - Weight 90.7 kg (200 lb) 09/13/2019 10:54 PM CDT Height 170.2 cm (5' 7") 09/13/2019 10:54 PM CDT Body Mass Index 31.32 09/13/2019 10:54 PM CDT documented in this encounter Discharge Instructions Vince Laurent [employer] - 09/14/2019 DIAGNOSIS ICD-10-CM ICD-9-CM 1. Shortness of breath R06.02 786.05 2. Chest pain, unspecified type R07.9 786.50 3. Tachypnea R06.82 786.06 NO LIFE-THREATENING FINDINGS ON TODAY'S EXAM. SPECIAL CARE INSTRUCTIONS: Stay well hydrated Follow up with PCP Return to ER as needed FOLLOW-UP RECOMMENDATIONS: RECOMMEND FOLLOW-UP WITH A PRIMARY CARE PROVIDER OR SPECIALIST IN 2-5 DAYS, ESPECIALLY IF NO IMPROVEMENT IN SYMPTOMS. TO FOLLOW-UP WITHIN THE [facility], TRY THESE OPTIONS (CLINIC APPOINTMENTS AVAILABLE ON ISBK-TE-TUEL BASIS): 1. SCHEDULE AN APPOINTMENT ONLINE AT WWW.[facility] 2. OR CALL THE [facility] AT OR 3. OR CALL YOUR [facility] PHYSICIAN'S OFFICE DIRECTLY IF YOU ARE ALREADY AN ESTABLISHED [facility] PATIENT. OR, YOU MAY FOLLOW-UP WITH A PROVIDER OF YOUR CHOICE, SUCH : 1. A PHYSICIAN OF YOUR CHOICE 2. [facility], . LOCATIONS IN [facility] 3. [facility], [address] [place] [address]; [phone] RETURN TO ER FOR WORSENING OF SYMPTOMS. AttachmentsThe following attachments cannot be sent through Care Everywhere. Shortness of Breath (Dyspnea) (Indian)Chest Pain, Uncertain Cause (Indian) Anxiety, Your Body's Response to (Indian)documented in this encounter Plan of Treatment Name Type Priority Associated Diagnoses Date/Ti nh CT CHEST PULMONARY IMAGING STAT Shortness of breath 09/14/2019 12:19 AM ANGIOGRAM Chest pain, unspecified CDT type Tachypnea Name Type Priority Associated Diagnoses Order S chedule XR CHEST 1 VW IMAGING STAT ONCE for 1 Occ urrences starting 09/13/2019 unti l 09/13/2019 Health Maintenance Due Date Last Done Comments VARICELLA VACCINES (1 of 2 - 06/17/1983 2-dose childhood series) DTaP,Tdap,and Td Vaccines (1 - 1993 Tdap) Depression Screening 1994 INFLUENZA VACCINE (#1) 2019 PNEUMOCOCCAL 0-64 YEARS COMBINED Aged Out No longer eligible based on SERIES patient's age to complete this topic documented as of this encounter Procedures Procedure Name Priority Date/Time Associated Diagnosis Comme nts XR CHEST 1 VW COVID STAT 09/13/2019 11:26 PM Shortnes s of breath Results for this CDT Chest pain, procedure are i n unspecified type the results Tachypnea section. COVID-19 (ID NOW STAT 09/13/2019 11:09 PM Shortness o f breath Results for this RAPID TESTING) CDT Chest pain, procedure are in unspecified type the results Tachypnea section. CBC WITH DIFF STAT 09/13/2019 11:09 PM Shortness of breath Results for this CDT Chest pain, procedure are i n unspecified type the results Tachypnea section. COMP. METABOLIC STAT 09/13/2019 11:09 PM Shortness of breath Results for this PANEL (33866) CDT Chest pain, procedure are in unspecified type the results Tachypnea section. TROPONIN I STAT 09/13/2019 11:09 PM Shortness of breath Results for this CDT Chest pain, procedure are i n unspecified type the results Tachypnea section. EKG-12 LEAD ALEXANDRE 09/13/2019 11:07 PM CDT CONSENT/REFUSAL FOR Routine 09/13/2019 10:38 PM DIAGNOSIS AND CDT TREATMENT documented in this encounter Results XR CHEST 1 VW COVID (09/13/2019 11:26 PM CDT) Specimen Impressions Performed At PACS/VR/DOSE No acute cardiopulmonary abnormality. Sp ecifically, no radiographic findings to suggest COVID-19 pneumonia. Disclaimer: Generally, the findings on c hest imaging in COVID-19 are not specific, and overlap with other infecti ons, including influenza, H1N1, SARS and MERS. According to the Centers for Disease Control (CDC) and recent statement of the [employer], viral testing remai ns the only specific method of diagnosis. Confirmation with the viral test is required, even if radiologic findings are suggestive of CO VID-[address] Preliminary Report Dictated by Resident: Elio Weinberg MD., have review ed this study and agree with the above report. Narrative Performed At PROCEDURE: CHEST, SINGLE VIEW PACS/VR/DOSE CLINICAL INDICATION: 39 years Male prese nting with shortness of breath COMPARISON: Chest radiographs 04/17/2019. Technique: Single AP view of the chest. FINDINGS: Lungs: The lungs are clear. No focal con solidation, pleural effusion, or pneumothorax. Mediastinum: The cardiomediastinal silho uette is normal in size. Osseous structures: No acute bony abnorm ality. Procedure Note [facility], Radiant Results Inft User - 2019 1:42 AM CDT PROCEDURE: CHEST, SINGLE VIEW CLINICAL INDICATION: 39 years Male prese nting with shortness of breath COMPARISON: Chest radiographs 04/17/2019. Technique: Single AP view of the chest. FINDINGS: Lungs: The lungs are clear. No focal con solidation, pleural effusion, or pneumothorax. Mediastinum: The cardiomediastinal silho uette is normal in size. Osseous structures: No acute bony abnorm ality. IMPRESSION No acute cardiopulmonary abnormality. Sp ecifically, no radiographic findings to suggest COVID-19 pneumonia. Disclaimer: Generally, the findings on c hest imaging in COVID-19 are not specific, and overlap with other infecti ons, including influenza, H1N1, SARS and MERS. According to the Centers for Disease Con trol (CDC) and recent statement of the [employer], viral testing remains the only specific method of diagnosis. Confirmation with t he viral test is required, even if radiologic findings are suggestive of CO VID-[address]. Preliminary Report Dictated by Resident: Elio Weinberg MD., have reviewe d this study and agree with the above report. Performing Organization Address City/State/Zipcode Phone Number PACS/VR/DOSE COVID-19 (ID NOW RAPID TESTING) (09/13/2019 11:09 PM CDT) SARS-CoV-2 Rapid ID Not Detected Not Detected [facility] Specimen Swab - NASOPHARYNGEAL SWAB Narrative Performed At MD NOW COVID-19 Assay is an isothermal nucleic [facility] acid amplification test intended for the qualitative detection of nucleic acid from SARS-CoV-2 viral RNA in nasopharyngeal (WAREHOUSE ATTENDANT) specimens. It is used under Emergency Use Authorization (EUA) by FDA. The limit of detection (LOD) of the assay is 125 Genome Equivalents/mL. A positive result is indicative of the presence of SARS-CoV-2 RNA. Clinical correlation with patient history and other diagnostic information is necessary to determine patient infection status. A negative (Not Detected) result does not preclude SARS-CoV-2 infection. In patients with clinical symptoms and other tests that are consistent with SARS-CoV-2 infection, negative results should be treated as presumptive negative and a new specimen should be tested with alternative PCR molecular test. Invalid: Please collect a new specimen for repeat patient testing if clinically indicated. Performing Organization Address [facility] Phone Number [facility] CLIA: [id number], [address], [place] [address] TROPONIN I (09/13/2019 11:09 PM CDT) Pathologist Sig nature TROPONIN I <0.012 <=0.034 ng/mL [facility] Specimen Blood - VENOUS Narrative Performed At Equal or Less than 0.034 ng/ml---Normal [facility] Note: Cardiac troponin begins to [...] patient's use of biotin. Performing Organization Address [facility] Phone Number [facility] CLIA: [id number], [address], [place] [address] COMP. METABOLIC PANEL ([id number]) (09/13/2019 11:09 PM CDT) NA 139 135 - 145 [facility] mmol/L [facility] K 4.0 3.5 - 5.0 [facility] mmol/L [facility] CL 106 98 - 108 mmol/L [facility] CO2 TOTAL 25 23 - 31 mmol/L [facility] AGAP 8 2 - 16 [facility] BUN 18 7 - 23 mg/dL [facility] GLUCOSE 127 (H) 70 - 110 mg/dL [facility] CREATININE 1.42 (H) 0.60 - 1.25 [facility] mg/dL [facility] TOTAL BILI 0.6 0.1 - 1.1 mg/dL [facility] CALCIUM 9.1 8.6 - 10.6 [facility] mg/dL [facility] T PROTEIN 8.0 6.3 - 8.2 g/dL [facility] ALBUMIN 4.0 3.5 - 5.0 g/dL [facility] ALK PHOS 74 34 - 122 U/L [facility] ALTv 63 (H) 5 - 50 U/L [facility] AST(SGOT) 36 13 - 40 U/L [facility] eGFR Calculation 56.1 mL/min/1.73m2 [facility] [place]) eGFR Calculation 68.0 mL/min/1.73m2 [facility] () [facility] Specimen Blood - VENOUS Narrative Performed At Association of Glomerular Filtration Rate (GFR) [facility] and Staging of Kidney Disease* + [...] tests). Performing Organization Address City/State/Zipcode Phone Number [facility] CLIA: [id number], [address], [place] [address] CBC WITH DIFF (09/13/2019 11:09 PM CDT) Pathologist Sig nature WBC 11.07 (H) 4.20 - 10.70 [facility] 10*3/L [facility] RBC 6.18 (H) 4.26 - 5.52 [facility] 10*6/L [facility] HGB 18.8 (H) 12.2 - 16.4 [facility] g/dL [facility] HCT 55.4 (H) 38.4 - 49.3 % [facility] MCV 89.6 81.7 - 95.6 fL [facility] MCH 30.4 26.1 - 32.7 pg [facility] MCHC 33.9 31.2 - 35.0 [facility] g/dL [facility] RDW-SD 44.6 38.5 - 51.6 fL [facility] RDW-CV 13.7 12.1 - 15.4 % [facility] PLT 257 150 - 328 [facility] 10*3/L [facility] MPV 8.6 (L) 9.8 - 13.0 fL [facility] NRBC/100 WBC 0.0 0.0 - 10.0 /100 [facility] WBCs [facility] NRBC x10^3 <0.01 10*3/L [facility] GRAN MAT (NEUT) % 60.7 % [facility] IMM GRAN % 1.10 % [facility] LYMPH % 29.2 % [facility] MONO % 7.8 % [facility] EOS % 0.6 % [facility] BASO % 0.6 % [facility] GRAN MAT x10^3(ANC) 6.72 1.99 - 6.95 [facility] 10*3/uL [facility] IMM GRAN x10^3 0.12 (H) 0.00 - 0.06 [facility] 10*3/uL [facility] LYMPH x10^3 3.23 1.09 - 3.23 [facility] 10*3/uL [facility] MONO x10^3 0.86 0.36 - 1.02 [facility] 10*3/uL [facility] EOS x10^3 0.07 0.06 - 0.53 [facility] 10*3/uL [facility] BASO x10^3 0.07 0.01 - 0.09 [facility] 10*3/uL [facility] Specimen Blood - VENOUS Performing Organization Address City/State/Zipcode Phone Number [facility] CLIA: [id number], [address], [place] [address] documented in this encounter Visit Diagnoses Diagnosis Shortness of breath - Primary Chest pain, unspecified type Tachypnea Anxiety Anxiety state, unspecified documented in this encounter Administered Medications Medication Order MAR Action Action Date Dose Rate Site iohexol (OMNIPAQUE 350 BULK-100 Given 09/14/2019 12:14 AM CDT 10 0 mL mL) injection 100 mL 100 mL, Intravenous, ONCE, 1 dose, 09/14/19 at 0030, Routine documented in this encounter Additional Health Concerns Infection Onset Date Last Indicated Resolved Time COVID-19 Rule Out 09/13/2019 09/13/2019 09/13/2019 11: 55 PM CDT documented as of this encounter
--- OUTSIDE RECORDS SUMMARY | 2019-10-02 17:28 | XMS REPORT | Continuity of Care Document ---
:1980 Author Organization [facility] t Address [address] [place] [address] Care Team Providers Name Role Phone Verna BREEN Attending Clinician True Redding DO Attending Clinician Problems This patient has no known problems. Allergies, Adverse Reactions, Alerts This patient has no known allergies or adverse reactions. Medications This patient has no known medications. Procedures This patient has no known procedures. Encounters Start End Encounter Admission Attending Care Care Encounter Source Date/Time Date/Time Type Type Clinicians Facility Department ID 2019-09-13 2019-09-14 [facility] [id number] 22:39:53 02:14:00 Vince Aguirre [id number] [place] [id number] [place] [id number] [id number] 2019-04-17 2019-04-17 [facility] [id number] 00:20:51 01:34:00 Micheline Aguirre [id number] [place] [id number] [place] [id number] [id number] Results This patient has no known results.
[2019-10-02] MEDS ORDERED: NA CHLORIDE 0.9% 1,000 ML ONE (19:50)
[2019-10-02] MEDS ORDERED: METHYLPREDNISOLONE 125 MG INJ ONE (19:50)
[2019-10-02 19:51] LABS: Absolute Lymphocytes (CBC) 2.2 K/uL (0.7-4.9); Basophils % 0.6 % (0-1.3); Hematocrit 58.5 % (39.6-49.0); Lymphocytes % 21.5 % (15.3-44.8); MPV 6.8 fL (7.6-11.3); RBC Red Blood Cell Count 6.59 M/uL (4.33-5.43)
[2019-10-02] MEDS ORDERED: ACETAMINOPHEN 500 MG TAB ONE (19:58)
[2019-10-02 20:07] LABS: Albumin 3.3 g/dL (3.4-5.0); Bilirubin Direct 0.1 mg/dL (0-0.2); Bilirubin Total 0.3 mg/dL (0.2-1.0); Potassium 3.9 mmol/L (3.5-5.1); Protein, Total 8.5 g/dL (6.4-8.2)
--- NOTE | 2019-10-02 23:35 | ER ---
Nurse's Notes [facility] Name: Francesco Marr Age: 39 yrs Sex: Male : 1980 Arrival Date: 10/02/2019 Time: 17:29 Bed 13 Private MD: Diagnosis: Ulcerative colitis Presentation: 10/01 17:35 Chief complaint: Patient states: Abdominal bloating/pain for 2 days. Noticed black ll1 stool today with some mucous in it. Pain to left abdomen, states he had colitis in the past. Coronavirus screen: Client denies travel out of the [place] in the last 14 days. At this time, the client does not indicate any symptoms associated with coronavirus-19. The client reports previous COVID testing was negative. Ebola Screen: Patient denies travel to an Ebola-affected area in the 21 days before illness onset. Initial Sepsis Screen: Does the patient meet any 2 criteria? HR > 90 bpm. Risk Assessment: Do you want to hurt yourself or someone else? Patient reports no desire to harm self or others. Onset of symptoms was October 01, 2019. 17:35 Method Of Arrival: Ambulatory ll1 17:35 Acuity: LONA 3 ll1 19:30 Initial Sepsis Screen: Does the patient have a suspected source of infection? No. vc Patient's initial sepsis screen is negative. Historical: - Allergies: 17:38 No Known Allergies; ll1 - PMHx: 17:38 testicular cancer; Anxiety; Sleep Apnea; colitis; ll1 - PSHx: 17:38 testicle removed; ll1 - Immunization history:: Flu vaccine is not up to date. - Social history:: Smoking status: Patient denies any tobacco usage or history of. Patient/guardian denies using alcohol, street drugs. Screenin:30 Abuse screen: Denies threats or abuse. Nutritional screening: No deficits noted. vc Tuberculosis screening: No symptoms or risk factors identified. Fall Risk None identified. Assessment: 19:30 General: Appears in no apparent distress. comfortable, slender, Behavior is calm, vc cooperative, appropriate for age. Pain: Denies pain. Neuro: Level of Consciousness is awake, alert, obeys commands, Oriented to person, place, time, situation, Appropriate for age. Cardiovascular: Reports fatigue, Capillary refill < 3 seconds. Respiratory: No deficits noted. GI: Reports rectal bleeding, bloody stool. : No signs and/or symptoms were reported regarding the genitourinary system. 20:30 Reassessment: Patient appears in no apparent distress at this time. Patient and/or vc family updated on plan of care and expected duration. Pain level reassessed. Patient is alert, oriented x 3, equal unlabored respirations, skin warm/dry/pink. 21:30 Reassessment: Patient appears in no apparent distress at this time. Patient and/or vc family updated on plan of care and expected duration. Pain level reassessed. Patient is alert, oriented x 3, equal unlabored respirations, skin warm/dry/pink. 22:30 Reassessment: Patient appears in no apparent distress at this time. Patient and/or vc family updated on plan of care and expected duration. Pain level reassessed. Patient is alert, oriented x 3, equal unlabored respirations, skin warm/dry/pink. 23:30 Reassessment: Patient appears in no apparent distress at this time. Patient and/or vc family updated on plan of care and expected duration. Pain level reassessed. Patient is alert, oriented x 3, equal unlabored respirations, skin warm/dry/pink. Vital Signs: 17:35 BP 136 / 94; Pulse 99; Resp 18; Temp 98.5; Pulse Ox 99% ; Weight 86.18 kg; Height 5 ft. ll1 7 in. (170.18 cm); Pain 5/10; 21:00 BP 132 / 76; Pulse 82; Resp 18; Pulse Ox 98% on R/A; vc 23:30 BP 133 / 86; Pulse 88; Resp 18; Pulse Ox 97% on R/A; vc 17:35 Body Mass Index 29.76 (86.18 kg, 170.18 cm) ll1 ED Course: 17:29 Patient arrived in ED. ds1 17:38 Triage completed. ll1 17:38 Arm band placed on Patient notified of wait time. ll1 19:29 Litzy Vuong, KAMI is Primary Nurse. vc 19:30 Patient has correct armband on for positive identification. Bed in low position. Call vc light in reach. Pulse ox on. NIBP on. 19:32 Murali Berman PA is PHCP. jr8 19:32 Robb Arenas MD is Attending Physician. jr8 19:40 Inserted saline lock: 18 gauge in right antecubital area, using aseptic technique. ds4 Blood collected. 22:09 CT Abd/Pelvis - Without Contrast In Process Unspecified. EDMS 23:35 Maira Whitaker MD is Referral Physician. jr8 23:51 No provider procedures requiring assistance completed. IV discontinued, intact, vc bleeding controlled, No redness/swelling at site. Pressure dressing applied. Administered Medications: 19:40 Drug: SOLU-Medrol 125 mg Route: IVP; Site: right antecubital; vc 23:39 Follow up: Response: No adverse reaction vc 19:40 Drug: NS 0.9% 1000 ml Route: IV; Rate: 1 bolus; Site: right antecubital; vc 23:39 Follow up: IV Status: Completed infusion; IV Intake: 1000ml vc 19:45 Drug: Tylenol 1000 mg Route: PO; vc 23:39 Follow up: Response: No adverse reaction vc Intake: 23:39 IV: 1000ml; Total: 1000ml. vc Outcome: 23:35 Discharge ordered by . jr8 10/02 00:00 Patient left the ED. vc 00:00 Discharged to home ambulatory. vc 00:00 Condition: good 00:00 Discharge instructions given to patient, Instructed on discharge instructions, follow up and referral plans. medication usage, Demonstrated understanding of instructions, follow-up care, medications, Prescriptions given X 1. Signatures: Dispatcher [employer] EDMD SierraPeggy ds1 Murali Berman PA PA jr8 Jacobo Hughes ds4 Litzy Vuong RN RN vc Bunny Healy RN RN ll1
--- NOTE | 2019-10-02 23:36 | EDPHYS ---
Physician Documentation [facility] Name: Francesco Marr Age: 39 yrs Sex: Male : 1980 Arrival Date: 10/02/2019 Time: 17:29 Bed 13 Private MD: ED Physician Robb Arenas HPI: 10/01 21:29 This 39 yrs old Male presents to ER via Ambulatory with complaints of jr8 Dizziness - Fatigue, Black/Tarry Stools. 21:29 Onset: The symptoms/episode began/occurred gradually, 2 day(s) ago. Associated signs jr8 and symptoms: Pertinent positives: abdominal pain. Severity of symptoms: At their worst the symptoms were moderate in the emergency department the symptoms are unchanged. The patient has experienced similar episodes in the past, a few times. The patient has been recently seen by a physician:. Patient stated that he recently started on mesalamine for UC. Stated that he started to have intense cramping and black stools. Today felt dizzy which is why he came to be evaluated. Stated that pain has improved . Historical: - Allergies: 17:38 No Known Allergies; ll1 - PMHx: 17:38 testicular cancer; Anxiety; Sleep Apnea; colitis; ll1 - PSHx: 17:38 testicle removed; ll1 - Immunization history:: Flu vaccine is not up to date. - Social history:: Smoking status: Patient denies any tobacco usage or history of. Patient/guardian denies using alcohol, street drugs. ROS: 21:29 Eyes: Negative for injury, pain, redness, and discharge, ENT: Negative for injury, jr8 pain, and discharge, Neck: Negative for injury, pain, and swelling, Cardiovascular: Negative for chest pain, palpitations, and edema, Respiratory: Negative for shortness of breath, cough, wheezing, and pleuritic chest pain, Back: Negative for injury and pain, MS/Extremity: Negative for injury and deformity, Skin: Negative for injury, rash, and discoloration. 21:29 Abdomen/GI: Positive for abdominal cramps, black/tarry stool. 21:29 Neuro: Positive for dizziness. Exam: 21:29 Eyes: Pupils equal round and reactive to light, extra-ocular motions intact. Lids and jr8 lashes normal. Conjunctiva and sclera are non-icteric and not injected. Cornea within normal limits. Periorbital areas with no swelling, redness, or edema. ENT: Nares patent. No nasal discharge, no septal abnormalities noted. Tympanic membranes are normal and external auditory canals are clear. Oropharynx with no redness, swelling, or masses, exudates, or evidence of obstruction, uvula midline. Mucous membranes moist. Neck: Trachea midline, no thyromegaly or masses palpated, and no cervical lymphadenopathy. Supple, full range of motion without nuchal rigidity, or vertebral point tenderness. No Meningismus. Cardiovascular: Regular rate and rhythm with a normal S1 and S2. No gallops, murmurs, or rubs. Normal PMI, no JVD. No pulse deficits. Respiratory: Lungs have equal breath sounds bilaterally, clear to auscultation and percussion. No rales, rhonchi or wheezes noted. No increased work of breathing, no retractions or nasal flaring. Abdomen/GI: Soft, non-tender, with normal bowel sounds. No distension or tympany. No guarding or rebound. No evidence of tenderness throughout. Back: No spinal tenderness. No costovertebral tenderness. Full range of motion. Skin: Warm, dry with normal turgor. Normal color with no rashes, no lesions, and no evidence of cellulitis. MS/ Extremity: Pulses equal, no cyanosis. Neurovascular intact. Full, normal range of motion. Neuro: Awake and alert, GCS 15, oriented to person, place, time, and situation. Cranial nerves II-XII grossly intact. Motor strength 5/5 in all extremities. Sensory grossly intact. Cerebellar exam normal. Normal gait. Vital Signs: 17:35 BP 136 / 94; Pulse 99; Resp 18; Temp 98.5; Pulse Ox 99% ; Weight 86.18 kg; Height 5 ft. ll1 7 in. (170.18 cm); Pain 5/10; 21:00 BP 132 / 76; Pulse 82; Resp 18; Pulse Ox 98% on R/A; vc 23:30 BP 133 / 86; Pulse 88; Resp 18; Pulse Ox 97% on R/A; vc 17:35 Body Mass Index 29.76 (86.18 kg, 170.18 cm) ll1 MDM: 19:33 Patient medically screened[address] [facility] 23:34 Data reviewed: vital signs, nurses notes, lab test result(s), radiologic studies, CT jr8 scan. Data interpreted: Pulse oximetry: on room air is 99 %. Interpretation: normal. 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 23:40 ED course: Discussed with patient his renal function and need for f/u with nephrology. jr8 To stop the mesalamine based product and will put on medrol dose pack. Patient has GI f/u this upcoming week. Will f/u with PCP for kidney. 10/01 19:33 Order name: Basic Metabolic Panel; Complete Time: 20:21 10/01 19:33 Order name: CBC with Diff; Complete Time: 20:[address] [facility] 10/01 19:33 Order name: Hepatic Function; Complete Time: 20:[address] [facility] 10/01 19:33 Order name: Lipase; Complete Time: 20:[address] [facility] 10/01 21:28 Order name: CT Abd/Pelvis - Without Contrast [facility] 10/01 19:33 Order name: IV Saline Lock; Complete Time: 19:46 10/01 19:33 Order name: Labs collected and sent; Complete Time: 19:46 Administered Medications: 19:40 Drug: SOLU-Medrol 125 mg Route: IVP; Site: right antecubital; vc 23:39 Follow up: Response: No adverse reaction vc 19:40 Drug: NS 0.9% 1000 ml Route: IV; Rate: 1 bolus; Site: right antecubital; vc 23:39 Follow up: IV Status: Completed infusion; IV Intake: 1000ml vc 19:45 Drug: Tylenol 1000 mg Route: PO; vc 23:39 Follow up: Response: No adverse reaction vc Disposition: 10/02 06:14 Co-signature as Attending Physician, Robb Arenas MD. mh7 Disposition: 10/02/19 23:35 Discharged to Home. Impression: Ulcerative colitis. - Condition is Stable. - Discharge Instructions: Ulcerative Colitis, Adult. - Prescriptions for Medrol (Amado) 4 mg Oral Tablets, Dose Pack - take 1 tablet by ORAL route as directed - follow package instructions; 1 packet. - Medication Reconciliation Form, Thank You Letter, Antibiotic Education, Prescription Opioid Use, Work release form form. - Follow up: Maira Whitaker MD; When: 5 - 6 days; Reason: Recheck today's complaints, Continuance of care, Re-evaluation by your physician. - Problem is new. - Symptoms have improved. Signatures: Dispatcher [employer] EDMS Murali Berman PA PA jr8 Pete Chahal, SLEEP TECHNICIAN-C SLEEP TECHNICIAN-Cla1 Litzy Vuong RN RN vc Bunny Healy RN RN ll1 Robb Arenas MD MD mh7 Corrections: (The following items were deleted from the chart) 00:00 10/01 23:35 10/02/2019 23:35 Discharged to Home. Impression: Ulcerative colitis. vc Condition is Stable. Forms are Medication Reconciliation Form, Thank You Letter, Antibiotic Education, Prescription Opioid Use. Follow up: Maira Whitaker; When: 5 - 6 days; Reason: Recheck today's complaints, Continuance of care, Re-evaluation by your physician. Problem is new. Symptoms have improved. jr8
[2019-10-03 01:38] VITALS: TEMP 98.5
[2019-10-03 01:40] VITALS: BP 133/86; O2SAT 97
--- NOTE | 2019-10-03 15:00 | RAD REPORT ---
EXAM DESCRIPTION: CT Abdomen and Pelvis Without Intravenous Contrast CLINICAL HISTORY: The patient is 39 years old and is Male; ABD PAIN TECHNIQUE: Axial computed tomography images of the abdomen and pelvis without intravenous contrast. Sagittal and coronal reformatted images were created and reviewed. This CT exam was performed usi ng one or more of the following dose reduction techniques: automated exposure control, adjustment o f the mA and/or kV according to patient size, and/or use of iterative reconstruction technique. DLP: 817 mGy*cm COMPARISON: CT abdomen and pelvis dated September 09, 2016. FINDINGS: LUNG BASES: Mild bibasilar atelectasis. No focal consolidation or pleural effusion. HEART: Visualized heart is normal. ABDOMEN: LIVER: Unremarkable. GALLBLADDER AND BILE DUCTS: Unremarkable. No calcified stones. No ductal dilation. PANCREAS: Unremarkable. No ductal dilation. SPLEEN: Unremarkable. No splenomegaly. ADRENALS: Unremarkable. No mass. KIDNEYS AND URETERS: Multiple bilateral nonobstructive renal stones. No hydronephrosis. STOMACH AND BOWEL: Unremarkable. No obstruction. No mucosal thickening. PELVIS: APPENDIX: The appendix is seen and is within normal limits. BLADDER: Unremarkable. No stones. REPRODUCTIVE: Unremarkable as visualized. ABDOMEN and PELVIS: INTRAPERITONEAL SPACE: Unremarkable. No free air. No significant fluid collection. BONES/JOINTS: No acute fracture. No dislocation. SOFT TISSUES: Unremarkable. VASCULATURE: Unremarkable. No abdominal aortic aneurysm. LYMPH NODES: Unremarkable. No enlarged lymph nodes. IMPRESSION: 1. No acute abdominal or pelvic abnormality. No obstructive uropathy. 2. Multiple bilateral nonobstructive renal stones. No hydronephrosis. Electronically signed by: Nikunj Greenwood DO 10/02/2019 10:34 PM CDT Due to temporary technical issues with the PACS/Fluency reporting system, reports are being signed by the in house radiologist without review as a courtesy to ensure prompt reporting. The interpreting r adiologist is fully responsible for the content of the report.
== END 2019-10-03 | disposition home or self-care (01) ==
LOC: ER 17:26
DX: K51.90 Ulcerative colitis, unspecified, without complications (principal); Z85.47 Personal history of malignant neoplasm of testis; Z90.79 Acquired absence of other genital organ(s)
CPT/HCPCS: 36415; 74176; 80048; 80076; 83690; 85025; 96361; 96374; 99284; J2930; J7030

== ENCOUNTER 2020-03-22 00:43 | Emergency (ER) | payer SELFPAY ==
[2011-05-31 06:23] VITALS: BP 116/70
--- OUTSIDE RECORDS SUMMARY | 2020-03-22 00:46 | XMS REPORT | Continuity of Care Document ---
:1980 Author Organization [facility] t Address [address] [place] [address] Care Team Providers Name Role Phone True Redding DO Attending Clinician Doctor Unassigned, Name Attending Clinician Unavailable Verna BREEN Attending Clinician Problems This patient has no known problems. Allergies, Adverse Reactions, Alerts This patient has no known allergies or adverse reactions. Medications This patient has no known medications. Procedures This patient has no known procedures. Encounters Start End Encounter Admission Attending Care Care Encounter Source Date/Time Date/Time Type Type Clinicians Facility Department ID 2020-03-06 2020-03-07 Emergency [place] [id number] 23:45:00 00:09:00 Micheline Aguirre [id number] [place] [id number] [place] [address] [id number] 2019-11-26 2019-11-26 Emergency [place] [id number] 03:54:00 05:42:00 Micheline Aguirre [id number] [place] [id number] [place] [address] [id number] 2019-11-26 2019-11-26 Orders Doctor JOHNSON [id number] 00:00:00 00:00:00 Only UnassignedJUANJO [id number] [place] [id number] 2019-09-13 2019-09-14 Emergency [facility] [id number] 22:39:53 02:14:00 Vince Aguirre [id number] [place] [id number] [place] [id number] 2019-04-17 2019-04-17 Emergency [facility] [id number] 00:20:51 01:34:00 Micheline Aguirre [id number] [place] [id number] [place] [id number] Results This patient has no known results.
--- OUTSIDE RECORDS SUMMARY | 2020-03-22 00:46 | XMS REPORT | Summary of Care ---
:1980 Author Organization [facility] Address [address] [place] [address] Care Team Providers Name Role Phone Hirenluis[facility]as[facility] Primary Care Provider Reason for Visit Reason Comments Back Pain Encounter Details Date Type Department Care Team Description 03/06/2020 - Emergency ADC-Emergency Micheline Redding, Acute b ilateral low 03/07/2020 Department DO back pain without [address] sciatica (Primary Dx) [place] [address] [place] [address] Allergies No Known Allergiesdocumented as of this encounter (statuses as of 03/07/2020) Medications Medication Sig Dispensed Refills Start Date End Date Status ibuprofen (MOTRIN) 600 mg Take 1 Tab by 21 Tab 0 09/10/2014 Active tablet mouth every 8 (eight) hours as needed for Pain (scale 4-6). GUAIFENESIN/PSEUDOEPHEDRN Take by mouth. 0 Active E HCL (MUCINEX D ORAL) hydrOXYzine 25 mg Take 1 tablet 16 tablet 0 09/14/2019 Active tabletIndications: by mouth every Anxiety 6 (six) hours as needed for Anxiety. cyclobenzaprine 10 mg Take 1 tablet 9 tablet 0 03/06/2020 Active tabletIndications: Acute by mouth 3 bilateral low back pain (three) times without sciatica daily as needed for Muscle Spasms. documented as of this encounter (statuses as of 03/07/2020) Active Problems No known active problemsdocumented as of this encounter (statuses as of 03/07/2020) Social History Tobacco Use Types Packs/Day Years Used Date Never Smoker Smokeless Tobacco: Never Used Alcohol Use Drinks/Week oz/Week Comments Yes occasionally Sex Assigned at Date Recorded Not on file COVID-19 Exposure Response Date Recorded In the last month, have you been in contact with No / Unsure 03/06/2020 11:44 PM BEAN PICKER MACHINE OPERATOR someone who was confirmed or suspected to have Coronavirus / COVID-19? documented as of this encounter Last Filed Vital Signs Vital Sign Reading Time Taken Comments Blood Pressure 123/87 03/07/2020 12:00 AM BEAN PICKER MACHINE OPERATOR Pulse 88 03/07/2020 12:00 AM BEAN PICKER MACHINE OPERATOR Temperature 36.6 C (97.8 F) 03/06/2020 11:40 PM BEAN PICKER MACHINE OPERATOR Respiratory Rate 20 03/07/2020 12:00 AM BEAN PICKER MACHINE OPERATOR Oxygen Saturation 96% 03/07/2020 12:00 AM BEAN PICKER MACHINE OPERATOR Inhaled Oxygen Concentration - - Weight 90.7 kg (200 lb) 03/06/2020 11:40 PM BEAN PICKER MACHINE OPERATOR Height 170.2 cm (5' 7") 03/06/2020 11:40 PM BEAN PICKER MACHINE OPERATOR Body Mass Index 31.32 03/06/2020 11:40 PM BEAN PICKER MACHINE OPERATOR documented in this encounter Discharge Instructions Micheline Lopez DO - 1DIAGNOSIS 1. Back pain NO LIFE-THREATENING FINDINGS ON TODAY'S EXAM. PROCEDURES IN THE ER TODAY: None MEDICATIONS ADMINISTERED IN THE ER TODAY: Flexeril YOUR PRESCRIPTIONS AND [id number] MEDICATION RECOMMENDATIONS: Flexeril by mouth three times a day with food as needed for pain. You may use massage, icy hot/dayne tristan, warm compresses and Tylenol as needed for pain. SPECIAL CARE INSTRUCTIONS: None FOLLOW-UP RECOMMENDATIONS: RECOMMEND FOLLOW-UP WITH A PRIMARY CARE PROVIDER OR SPECIALIST IN 2-5 DAYS, ESPECIALLY IF NO IMPROVEMENT IN SYMPTOMS. TO FOLLOW-UP WITHIN THE [facility], TRY THESE OPTIONS (CLINIC APPOINTMENTS AVAILABLE ON [id number] BASIS): 1. SCHEDULE AN APPOINTMENT ONLINE AT [facility] 2. OR CALL THE [facility] AT OR 3. OR CALL YOUR [facility] PHYSICIAN'S OFFICE DIRECTLY IF YOU ARE ALREADY AN ESTABLISHED [facility] PATIENT. OR, YOU MAY FOLLOW-UP WITH A PROVIDER OF YOUR CHOICE, SUCH : 1. A PHYSICIAN OF YOUR CHOICE 2. [facility], . LOCATIONS IN [facility] 3. [facility], [address] [place], [place]; [phone] RETURN TO ER FOR WORSENING OF SYMPTOMS. AttachmentsThe following attachments cannot be sent through Care Everywhere.Back Pain, Relieving (Surinamese)documented in this encounter ED Notes Daria Taylor RN - 03/06/2020 11:37 PM CSTCC: Injured back 4 days ago lifting weights. Complaining of lower back pain. Pt stated "It hurts when I take a deep breath" since Monday. PMHx: HTN, Anxiety PSH:none MEDS:Amlodipine, hydroxyzine, paroxetine (not taking) LMP: na Tetanus: no Awake, alert, oriented, resp reg unlabored, skin warm & dry, color appropriate for race, moves all ext without difficulty, amb with out assist Appears in no distress PICKER MACHINE OPERATOR Micheline Redding DO - 03/06/2020 11:33 PM CST [facility] Emergency Department Note Patient Name: Francesco Marr Date of : 1980 39 year old male Treatment Room: [place] [address] Primary Care Physician: [facility] Patient Escorted by: Self [9] Mode of Arrival: Personal means [1] EMS Treatment Prior to ED Arrival: JACQUARD FIXER treatment: Analgesic JACQUARD FIXER treatment comments: Tylenol 1930 Travel and Exposure Screening: Symptoms Does patient have any of these symptoms?: (not recorded) Exposure Screening Has patient had contact with someone with a communicable disease in the last month?: (not recorded) Diseases exposed to:: (not recorded) Is Patient ?: (not recorded) Exposure Date: (not recorded) Chief Complaint: Chief Complaint Patient presents with Back Pain History of Present Illness: Patient presents for eval for upper lumbar back pain since Monday - today is Monday. States he injured it at work. 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 No loss of bowel or bladder function. No tingling or painto his legs. Pain bothers him when he changes positions. Used Tylenol around 1930 today. No cp orsob. States that when he takes a big deep breath his back hurts and that makes him breath differently. So he is now worried about his breathing. No cp. No cough or URI sx. No fevers Here for eval. Past Medical History/Immunizations: Past Medical History: Diagnosis Date Anxiety and depression Sleep apnea Testicular cancer Ulcerative colitis Tetanus received in last 5 years: Yes Childhood immunizations: Up-to-date Allergies: No Known Allergies Past Social History: Tobacco Use Never smoked or used smokeless tobacco. Alcohol Use Yes. Comments: occasionally Drug Use No. Sexual Activity Sexually active; Partners: Female. Past Surgical History: Past Surgical History: Procedure Laterality Date OTHER Right Testicle removal Review of Systems: Review of Systems Constitutional: Negative for chills and fever. Respiratory: Negative for cough and shortness of breath. Cardiovascular: Negative for chest pain. Gastrointestinal: Negative for abdominal pain, nausea and vomiting. Genitourinary: Negative for dysuria. Musculoskeletal: Positive for back pain. Negative for arthralgias, neck pain and neck stiffness. Skin: Negative for wound. Neurological: Negative for dizziness. Psychiatric/Behavioral: Negative for agitation. Physical Exam: ED Triage Vitals [03/06/20 2340] Weight 90.7 kg (200 lb) Actual or estimated Estimated by patient/family report Height 1.702 m (5' 7") BP (!) 145/80 Pulse 91 Resp 20 Temp 36.6 C (97.8 F) Temp source Oral SpO2 98 % Measured on Room air Physical Exam Vitals signs and nursing note reviewed. Constitutional: Appearance: Normal appearance. He is obese. HENT: Head: Normocephalic and atraumatic. Cardiovascular: Rate and Rhythm: Normal rate. Pulses: Normal pulses. Pulmonary: Effort: Pulmonary effort is normal. No respiratory distress. Musculoskeletal: Normal range of motion. Comments: Paraspinal muscle tenderness to upper lumbar and low thoracic area b/l No vertebral body tenderness to lumbar or thoracic spine Skin: General: Skin is warm and dry. Neurological: General: No focal deficit present. Mental Status: He is alert. Comments: Steady gait Radiology: No results found for this visit on 03/06/20. Lab Results (24h): No results found for this or any previous visit (from the past 24 hour(s)). Orders and Treatments: No orders of the defined types were placed in this encounter. Orders Placed This Encounter Medications cyclobenzaprine (FLEXERIL) tablet 10 mg cyclobenzaprine 10 mg tablet ED COURSE patient presents for eval for back pain since Monday - today is Monday. Injured it at work where he is a cylinder sander operator. Had Tylenol at 1930. No loss of bladder or bowel function. No pain or tingling to legs b/l. Pain worse with changing positions. VSS here in the EC. No respiratory distress. No vertebral body tenderness to thoracic or lumbar spine. Has paraspinal muscle tenderness to upper lumbar and low thoracic area b/l. No concern for fracture. No concern for cauda equina. Suspect pulled muscles. Has h/o CKD so no nsaids. Will give flexeril. Stable here in the EC and is ok for discharge home with PCP f/u. MDM: Coding Scoring Tools: No data recorded Diagnosis/Impression: ICD-10-CM ICD-9-CM 1. Acute bilateral low back pain without sciatica M54.5 724.2 338.19 Disposition/Condition: ED Disposition ED Disposition Condition Comment Disch - Home Stable Discharge Medications: Patient's Medications START taking these medications CYCLOBENZAPRINE 10 MG TABLET Take 1 tablet by mouth 3 (three) times daily as needed for Muscle Spasms. CONTINUE taking these medications which have NOT CHANGED GUAIFENESIN/PSEUDOEPHEDRNE HCL (MUCINEX D ORAL) Take by mouth. HYDROXYZINE 25 MG TABLET Take 1 tablet by mouth every 6 (six) hours as needed for Anxiety. IBUPROFEN (MOTRIN) 600 MG TABLET Take 1 Tab by mouth every 8 (eight) hours as needed for Pain (scale 4-6). START taking Modified Medications as Prescribed No medications on file STOP taking these medications No medications on file Follow-up: Electronically signed by: Micheline Redding DO 03/06/2020 11:54 PM PICKER MACHINE OPERATOR documented in this encounter Miscellaneous Notes ED Nurse Note - Shelby Banda RN - 03/07/2020 12:07 [address] CSTDr. Redding discharged the patient home with prescription and instructions given. Patient left ER vitally stable and ambulatory in steady gait. No valuables left in ED. PICKER MACHINE OPERATOR documented in this encounter Plan of Treatment Health Maintenance Due Date Last Done Comments VARICELLA VACCINES (1 of 2 - 06/17/1983 2-dose childhood series) Depression Screening 1994 DTaP,Tdap,and Td Vaccines (1 - 2001 Tdap) INFLUENZA VACCINE (#1) 2019 PNEUMOCOCCAL 0-64 YEARS COMBINED Aged Out No longer eligible based on SERIES patient's age to complete this topic documented as of this encounter Results Not on filedocumented in this encounter Visit Diagnoses Diagnosis Acute bilateral low back pain without sc iatica - Primary documented in this encounter Administered Medications Medication Order MAR Action Action Date Dose Rate Site cyclobenzaprine (FLEXERIL) tablet Given 03/06/2020 11:56 PM BEAN PICKER MACHINE OPERATOR 10 mg 10 mg 10 mg, Oral, ONCE, 1 dose, 03/07/20 at 0100, Routine documented in this encounter
--- NOTE | 2020-03-22 02:42 | ER ---
Nurse's Notes [facility] Name: Francesco Marr Age: 39 yrs Sex: Male : 1980 Arrival Date: 03/22/2020 Time: 00:44 Bed Waiting Private MD: Diagnosis: Presentation: 03/22 00:55 Acuity: LONA 3 sg Triage Assessment: 00:55 General: Appears in no apparent distress. well groomed, well developed, well nourished, sg Behavior is calm, cooperative, appropriate for age. Respiratory: Reports shortness of breath Airway is patent Respiratory effort is even, unlabored, Respiratory pattern is regular, symmetrical, the patient has mild shortness of breath. Historical: - Allergies: 00:56 No Known Allergies; sg - PMHx: 00:56 Anxiety; Colitis; Sleep Apnea; testicular cancer; sg - PSHx: 00:56 testicle removed; sg Assessment: 02:15 Reassessment: pt ambulatory to ER restroom at this time, steady gait observed. sg ED Course: 00:44 Patient arrived in ED. am2 00:55 Triage completed. sg Administered Medications: No medications were administered Outcome: 02:42 Patient left the ED. tt3 Signatures: Taj Webb, RN RN sg Breanna Gibbs am2 Yoni Crook tt3
== END 2020-03-22 02:42 | disposition left against medical advice (07) ==
LOC: ER 00:43
DX: Z53.21 Procedure and treatment not carried out due to patient leaving prior to being seen by health care provider (principal)
CPT/HCPCS: 99281

== ENCOUNTER 2020-03-22 12:37 | Emergency (ER) | payer SELFPAY ==
--- OUTSIDE RECORDS SUMMARY | 2020-03-22 12:39 | XMS REPORT | Continuity of Care Document ---
:1980 Author Organization [facility] t Address [address] [place] [address] Care Team Providers Name Role Phone True [...] Clinicians Facility Department ID 2020-03-06 2020-03-07 Emergency [place] [id number] 23:45:00 00:09:00 Micheilne Aguirre [id number] [place] [id number] [place] [address] [phone] [id number] 2019-11-26 2019-11-26 Emergency [place] [id number] 03:54:00 05:42:00 Micheline Aguirre [id number] [place] [id number] [place] [address] [id number] [id number] 2019-11-26 2019-11-26 Orders Doctor JOHNSON [id number] 00:00:00 00:00:00 Only UnassignedJUANJO [id number] [place] [phone] [id number] 2019-09-13 2019-09-[address] [facility] [id number] 22:39:53 02:14:00 Vince Aguirre [id number] [place] [id number] [place] [phone] [phone] 2019-04-17 Emergency [facility] [id number] 00:20:51 01:34:00 Micheline Aguirre [id number] [place] [id number] [place] [phone] [phone] Results This patient has no known results.
--- NOTE | 2020-03-22 14:03 | RAD REPORT ---
EXAM DESCRIPTION: RAD - Chest Single View - 03/22/2020 1:57 pm CLINICAL HISTORY: shortness of breath Chest pain. COMPARISON: Chest Single View dated 07/14/2019; Chest Pa And Lat (2 Views) dated 06/06/2017; Chest Sin gle View dated 09/09/2016; CHEST SINGLE VIEW dated 05/26/2014 FINDINGS: Portable technique limits examination quality. The lungs are grossly clear. The heart is normal in size. No displaced fractures. IMPRESSION: No acute intrathoracic process suspected.
[2020-03-22 14:19] LABS: Protime INR 0.99
[2020-03-22 14:32] LABS: ALT/SGPT 70 U/L (12-78); AST/SGOT 32 U/L (15-37); Albumin 3.8 g/dL (3.4-5.0); Alkaline Phosphatase 113 U/L (45-117); BUN Blood Urea Nitrogen 11 mg/dL (7-18); Bicarbonate 27 mmol/L (21-32); Bilirubin Direct 0.2 mg/dL (0-0.2); Glucose Level 97 mg/dL (74-106); NT PRO-BNP 14 pg/mL (<125); Potassium 4.1 mmol/L (3.5-5.1); Protein, Total 8.6 g/dL (6.4-8.2); Sodium Level 140 mmol/L (136-145); Troponin (Emerg Dept Use Only) < 0.02 ng/mL (0.0-0.045)
[2020-03-22 15:17] LABS: Absolute Lymphocytes (CBC) 1.4 K/uL (0.7-4.9); Basophils % 0.6 % (0-1.3); Hematocrit 53.6 % (39.6-49.0); Lymphocytes % 13.9 % (15.3-44.8); MPV 7.4 fL (7.6-11.3); RBC Red Blood Cell Count 6.11 M/uL (4.33-5.43)
[2020-03-22] MEDS ORDERED: ONDANSETRON 4 MG/2 ML VIAL ONE (15:46)
[2020-03-22] MEDS ORDERED: NA CHLORIDE 0.9% 1,000 ML ONE (15:47)
[2020-03-22] MEDS ORDERED: LEVALBUTEROL 1.25 MG/3 ML NEB ONE (15:47)
[2020-03-22 16:44] LABS: SARS-COV-2 RT PCR NEGATIVE (NEGATIVE)
--- NOTE | 2020-03-22 17:07 | ER ---
Nurse's Notes [facility] Name: Francesco Marr Age: 39 yrs Sex: Male : 1980 Arrival Date: 03/22/2020 Time: 12:38 Bed 20 Private MD: Diagnosis: Dyspnea, unspecified Presentation: 03/22 12:52 Chief complaint: Patient states: nauseated and SOB since last weekend , vomited three iw times last night, +cough. Coronavirus screen: cough unrelated to allergies, shortness of breath. Ebola Screen: Patient negative for fever greater than or equal to 101.5 degrees Fahrenheit, and additional compatible Ebola Virus Disease symptoms Patient denies exposure to infectious person. Patient denies travel to an Ebola-affected area in the 21 days before illness onset. No symptoms or risks identified at this time. Initial Sepsis Screen: Does the patient meet any 2 criteria? No. Patient's initial sepsis screen is negative. Does the patient have a suspected source of infection? No. Patient's initial sepsis screen is negative. Risk Assessment: Do you want to hurt yourself or someone else? Patient reports no desire to harm self or others. Onset of symptoms was March 16, 2020. 12:52 Method Of Arrival: Ambulatory iw 12:52 Acuity: LONA 3 iw Historical: - Allergies: 12:54 No Known Allergies; iw - Home Meds: 12:54 Hydroxyzine Oral 3 times per day [Active]; amlodipine oral once daily [Active]; iw - PMHx: 12:54 Anxiety; Colitis; Sleep Apnea; testicular cancer; iw - PSHx: 12:54 testicle removed; iw - Immunization history:: Adult Immunizations not up to date. - Social history:: Smoking status: Patient denies any tobacco usage or history of. Screenin:03 Abuse screen: Denies threats or abuse. Denies injuries from another. Nutritional zb screening: No deficits noted. Tuberculosis screening: No symptoms or risk factors identified. Fall Risk None identified. Assessment: 13:00 General: Appears in no apparent distress. uncomfortable, Behavior is cooperative, zb anxious, Reports chills for 2-3 days, feeling ill for 2-3 days, fatigue for 2-3 days. Pain: Complains of pain in headache, chest pain with inhalation Pain does not radiate. Quality of pain is described as dull, pressure. Neuro: Level of Consciousness is awake, alert, obeys commands, Oriented to person, place, time, situation. Cardiovascular: Reports nausea, shortness of breath, Capillary refill < 3 seconds Patient's skin is warm and dry. Pulses are all present. Rhythm is regular. Respiratory: Reports shortness of breath cough that is pain with respiration Airway is patent Respiratory effort is even, unlabored, Respiratory pattern is regular, symmetrical, Breath sounds are diminished in right posterior upper lobe Onset: The symptoms/episode began/occurred 2-3 days , the patient has mild shortness of breath. GI: Abdomen is flat, non-distended, Bowel sounds present X 4 quads. Reports nausea, vomiting, Patient currently denies diarrhea. : No signs and/or symptoms were reported regarding the genitourinary system. EENT: No deficits noted. Derm: Skin is intact, is healthy with good turgor, Skin is dry, Skin is normal, Skin temperature is warm. Musculoskeletal: Capillary refill < 3 seconds, in bilateral fingers. Range of motion: intact in all extremities. 14:06 Reassessment: Patient appears in no apparent distress at this time. Patient and/or zb family updated on plan of care and expected duration. Pain level reassessed. Patient is alert, oriented x 3, equal unlabored respirations, skin warm/dry/pink. pt states he is experience sob. provider notified. 15:00 Reassessment: Patient appears in no apparent distress at this time. Patient and/or zb family updated on plan of care and expected duration. Pain level reassessed. Patient is alert, oriented x 3, equal unlabored respirations, skin warm/dry/pink. pt c/o of nausea given medication. 16:00 Reassessment: Patient appears in no apparent distress at this time. Patient and/or zb family updated on plan of care and expected duration. Pain level reassessed. Patient is alert, oriented x 3, equal unlabored respirations, skin warm/dry/pink. Patient states feeling better. Patient states symptoms have improved. 17:00 Reassessment: Patient appears in no apparent distress at this time. Patient and/or zb family updated on plan of care and expected duration. Pain level reassessed. Patient is alert, oriented x 3, equal unlabored respirations, skin warm/dry/pink. Patient states feeling better. Patient states symptoms have improved. 17:58 Reassessment: d/c instructions given. gait even and steady upon discharge. zb Vital Signs: 12:52 BP 132 / 98; Pulse 93; Resp 18; Temp 97.9; Pulse Ox 98% ; Weight 96.16 kg; Height 5 ft. iw 7 in. (170.18 cm); 14:07 BP 105 / 72; Pulse 82; Resp 18; Pulse Ox 98% on R/A; zb 15:00 BP 105 / 72; Pulse 97; Resp 16; Pulse Ox 97% on R/A; zb 16:00 BP 133 / 66; Pulse 110; Resp 19; Pulse Ox 97% on 10% Nebulizer Mask; zb 12:52 Body Mass Index 33.20 (96.16 kg, 170.18 cm) iw ED Course: 12:38 Patient arrived in ED. ag5 12:54 Triage completed. iw 12:54 Arm band placed on. iw 13:08 Filiberto Cuello PA is PHCP. jmm 13:08 Domingo Godfrey MD is Attending Physician. jmm 13:17 Carmen Hein, KAMI is Primary Nurse. zb 13:50 EKG done, by ED staff, reviewed by Filiberto OSMAN. zb 13:57 XRAY Chest (1 view) In Process Unspecified. EDMS 14:05 Patient has correct armband on for positive identification. 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 Pulse zb ox on. NIBP on. Door closed. Noise minimized. Warm blanket given. 17:50 No provider procedures requiring assistance completed. IV discontinued, intact, zb bleeding controlled, No redness/swelling at site. Pressure dressing applied. Administered Medications: 15:38 Drug: NS 0.9% 1000 ml Route: IV; Rate: 1 bolus; Site: right forearm; zb 16:00 Follow up: Response: No adverse reaction; IV Status: Completed infusion; IV Intake: zb 1000ml 15:38 Drug: Xopenex (3) 1.25 mg Route: Inhalation; zb 16:30 Follow up: Response: No adverse reaction; Marked relief of symptoms zb Intake: 16:00 IV: 1000ml; Total: 1000ml. zb Outcome: 17:06 Discharge ordered by . [facility] 17:50 Discharged to home ambulatory. zb 17:50 Discharge instructions given to patient, Instructed on discharge instructions, follow up and referral plans. medication usage, Demonstrated understanding of instructions, follow-up care, medications, Prescriptions given X 1. 17:58 Patient left the ED. zb 18:01 Condition: stable zb Signatures: Dispatcher [employer] EDMS Filiberto Cuello PA PA jmm Williams, Irene, RN RN iw Gaskin, Ajare ag5 Brown, Zipporah, RN RN zb
--- NOTE | 2020-03-22 17:07 | EDPHYS ---
Physician Documentation [facility] Name: Francesco Marr Age: 39 yrs Sex: Male : 1980 Arrival Date: 03/22/2020 Time: 12:38 Bed 20 Private MD: ED Physician Domingo Godfrey HPI: 03/22 13:28 This 39 yrs old Male presents to ER via Ambulatory with complaints of jmm Shortness Of Breath, Nausea. 13:28 The patient has shortness of breath at rest. Onset: The symptoms/episode began/occurred jmm gradually, 1 day(s) ago. Duration: The symptoms are continuous. The patient's shortness of breath is aggravated by nothing, is alleviated by nothing. Associated signs and symptoms: Pertinent positives: chills. This is a 39 year old male with a history of anxiety that presents to the ED with complaints of shortness of breath, chills beginning last night. patient states a few coworkers have been diagnosed with covid. Historical: - Allergies: 12:54 No Known Allergies; iw - Home Meds: 12:54 Hydroxyzine Oral 3 times per day [Active]; amlodipine oral once daily [Active]; iw - PMHx: 12:54 Anxiety; Colitis; Sleep Apnea; testicular cancer; iw - PSHx: 12:54 testicle removed; iw - Immunization history:: Adult Immunizations not up to date. - Social history:: Smoking status: Patient denies any tobacco usage or history of. ROS: 13:28 Cardiovascular: Negative for chest pain, palpitations, and edema. jmm 13:28 Constitutional: Positive for chills. 13:28 Respiratory: Positive for shortness of breath. 13:28 All other systems are negative. Exam: 13:28 Constitutional: This is a well developed, well nourished patient who is awake, alert, jmm and in no acute distress. Head/Face: atraumatic. Eyes: EOMI, no conjunctival erythema appreciated ENT: Moist Mucus Membranes Neck: Trachea midline, Supple Chest/axilla: Normal chest wall appearance and motion. Cardiovascular: Regular rate and rhythm. No edema appreciated Respiratory: Normal respirations, no respiratory distress appreciated Abdomen/GI: Non distended, soft Back: Normal ROM Skin: General appearance color normal MS/ Extremity: Moves all extremities, no obvious deformities appreciated, no edema noted to the lower extremities Neuro: Awake and alert, normal gait Psych: Behavior is normal, Mood is normal, Patient is cooperative and pleasant 14:21 ECG was reviewed by the Attending Physician. [facility] Vital Signs: 12:52 BP 132 / 98; Pulse 93; Resp 18; Temp 97.9; Pulse Ox 98% ; Weight 96.16 kg; Height 5 ft. iw 7 in. (170.18 cm); 14:07 BP 105 / 72; Pulse 82; Resp 18; Pulse Ox 98% on R/A; zb 15:00 BP 105 / 72; Pulse 97; Resp 16; Pulse Ox 97% on R/A; zb 16:00 BP 133 / 66; Pulse 110; Resp 19; Pulse Ox 97% on 10% Nebulizer Mask; zb 12:52 Body Mass Index 33.20 (96.16 kg, 170.18 cm) iw MDM: 13:25 Patient medically screened. [facility] 17:05 Data reviewed: vital signs, nurses notes. ED course: Patient is alert and non toxic in [facility] appearance in the ED. No signs of resp distress. Patient advised to follow up with pcp and otherwise given strict return precautions. Patient understood and agree with the plan of care. . 03/22 13:27 Order name: Basic Metabolic Panel; Complete Time: 14:36 [facility] 03/22 13:27 Order name: CBC with Diff; Complete Time: 15:20 [facility] 03/22 13:27 Order name: LFT's; Complete Time: 14:36 [facility] 03/22 13:27 Order name: Magnesium; Complete Time: 14:36 [facility] 03/22 13:27 Order name: NT PRO-BNP; Complete Time: 14:36 [facility] 03/22 13:27 Order name: PT-INR; Complete Time: 15:30 [facility] 03/22 13:27 Order name: Troponin (emerg Dept Use Only); Complete Time: 14:36 [facility] 03/22 13:27 Order name: XRAY Chest (1 view); Complete Time: 14:08 [facility] 03/22 13:27 Order name: D-Dimer; Complete Time: 15:30 [facility] 03/22 16:44 Order name: COVID-19/FLU A+B; Complete Time: 16:44 [facility] 03/22 13:27 Order name: EKG; Complete Time: 13:28 m 03/22 13:27 Order name: Cardiac monitoring; Complete Time: 13:59 jm 03/22 13:27 Order name: EKG - Nurse/Tech; Complete Time: 13:59 jmm 03/22 13:27 Order name: IV Saline Lock; Complete Time: 13:59 jmm 03/22 13:27 Order name: Labs collected and sent; Complete Time: 13:59 jmm 03/22 13:27 Order name: O2 Per Protocol; Complete Time: :59 jm 03/22 13:27 Order name: O2 Sat Monitoring; Complete Time: :59 jmm EC:21 Rate is 74 beats/min. Rhythm is regular. QRS [place] is Normal. [place] interval is normal. QRS jmm interval is normal. QT interval is normal. No Q waves. T waves are Normal. No ST changes noted. Reviewed by me. Administered Medications: 15:38 Drug: NS 0.9% 1000 ml Route: IV; Rate: 1 bolus; Site: right forearm; zb 16:00 Follow up: Response: No adverse reaction; IV Status: Completed infusion; IV Intake: zb 1000ml 15:38 Drug: Xopenex (3) 1.25 mg Route: Inhalation; zb 16:30 Follow up: Response: No adverse reaction; Marked relief of symptoms zb Disposition: 18:52 Co-signature as Attending Physician, Domingo Godfrey MD. rn Disposition: 03/22/20 17:06 Discharged to Home. Impression: Dyspnea, unspecified. - Condition is Stable. - Discharge Instructions: Shortness of Breath. - Prescriptions for Albuterol Sulfate 90 mcg/actuation - inhale 1-2 puff by INHALATION route every 4-6 hours; 1 Inhaler. - Medication Reconciliation Form, Thank You Letter, Antibiotic Education, Prescription Opioid Use form. - Follow up: Private Physician; When: 2 - 3 days; Reason: Recheck today's complaints, Continuance of care, Re-evaluation by your physician. Signatures: Dispatcher [employer] [facility] Filiberto Cuello PA PA jmm Williams, Irene, RN RN iw Nieto, Roman, MD MD rn Brown, Zipporah, RN RN zb Corrections: (The following items were deleted from the chart) 15:29 13:28 CORONAVIRUS+MR.LAB.BRZ ordered. [facility] EDMS 15:30 13:28 Influenza Screen (A \T\ B)+BA.LAB.BRZ ordered. [facility] EDMS 17:58 17:06 03/22/2020 17:06 Discharged to Home. Impression: Dyspnea, unspecified. Condition zb is Stable. Forms are Medication Reconciliation Form, Thank You Letter, Antibiotic Education, Prescription Opioid Use. Follow up: Private Physician; When: 2 - 3 days; Reason: Recheck today's complaints, Continuance of care, Re-evaluation by your physician. joanne
[2020-03-22 18:04] VITALS: TEMP 97.9
[2020-03-22 18:06] VITALS: O2SAT 97
[2020-03-22 18:08] VITALS: BP 133/66
== END 2020-03-22 17:58 | disposition home or self-care (01) ==
LOC: ER 12:37
DX: R06.00 Dyspnea, unspecified (principal); Z20.822 Contact with and (suspected) exposure to COVID-19; F41.9 Anxiety disorder, unspecified; Z85.47 Personal history of malignant neoplasm of testis
CPT/HCPCS: 0240U; 36415; 71045; 80048; 80076; 83735; 83880; 84484; 85025; 85379; 85610; 93005; 99285; J2405; J7030

== ENCOUNTER 2020-04-12 02:06 | Emergency (ER) | payer SELFPAY ==
[2011-05-31 06:23] VITALS: BP 116/70
--- OUTSIDE RECORDS SUMMARY | 2020-04-12 02:09 | XMS REPORT | Continuity of Care Document ---
:1980 Author Organization [facility] t Address [address] [place] [address] Care Team Providers Name Role Phone True [...] Clinicians Facility Department ID 2020-03-06 2020-03-07 Emergency [place] [id number] 23:45:00 00:09:00 Micheline Aguirre [id number] [place] [id number] [place] [address] [phone] [id number] 2019-11-26 2019-11-26 Emergency [place] [id number] 03:54:00 05:42:00 Micheline Aguirre [id number] [place] [id number] [place] [address] [phone] [id number] 2019-11-26 2019-11-26 Orders Doctor JOHNSON [id number] 00:00:00 00:00:00 Only UnassignedJUANJO [id number] [place] [id number] [id number] 2019-09-13 2019-09-14 Emergency [facility] [id number] 22:39:53 02:14:00 Vince Aguirre [id number] [place] [id number] [place] [phone] [id number] 2019-04-17 2019-04-17 Emergency [facility] [id number] 00:20:51 01:34:00 Micheline Aguirre [id number] [place] [id number] [place] [phone] [id number] Results This patient has no known results.
[2020-04-12 02:59] LABS: Absolute Lymphocytes (CBC) 2.3 K/uL (0.7-4.9); Basophils % 0.4 % (0-1.3); Hematocrit 54.2 % (39.6-49.0); MPV 7.2 fL (7.6-11.3); RBC Red Blood Cell Count 6.03 M/uL (4.33-5.43)
[2020-04-12 03:07] LABS: Protime INR 1.02
[2020-04-12 03:19] LABS: ALT/SGPT 59 U/L (12-78); AST/SGOT 36 U/L (15-37); Albumin 3.5 g/dL (3.4-5.0); Alkaline Phosphatase 88 U/L (45-117); BUN Blood Urea Nitrogen 14 mg/dL (7-18); Bicarbonate 24 mmol/L (21-32); Bilirubin Direct < 0.1 mg/dL (0-0.2); Bilirubin Total 0.4 mg/dL (0.2-1.0); Glucose Level 102 mg/dL (74-106); Potassium 3.8 mmol/L (3.5-5.1); Protein, Total 7.8 g/dL (6.4-8.2); Sodium Level 139 mmol/L (136-145)
[2020-04-12 03:20] LABS: Urine Blood NEGATIVE (NEG); Urine Glucose NEGATIVE (NEG); Urine Protein NEGATIVE (NEG); Urine Specific Gravity 1.015 (1.005-1.030)
[2020-04-12 03:21] LABS: Barbiturates NEGATIVE (NEGATIVE); Benzodiazepines NEGATIVE (NEGATIVE); Cocaine NEGATIVE (NEGATIVE); METHAMPHETAM NEGATIVE (NEGATIVE); Methadone NEGATIVE (NEGATIVE); Opiates NEGATIVE (NEGATIVE); Phencyclidine NEGATIVE (NEGATIVE); THC Cannibis NEGATIVE (NEGATIVE)
[2020-04-12] MEDS ORDERED: LORazepam 2 MG/ML VIAL ONE (04:40)
--- NOTE | 2020-04-12 05:01 | EDPHYS ---
Physician Documentation [facility] Name: Francesco Marr Age: 39 yrs Sex: Male : 1980 Arrival Date: 04/12/2020 Time: 02:08 Bed 5 Private MD: ED Physician Robb Arenas HPI: 04/12 02:47 This 39 yrs old Male presents to ER via Ambulatory with complaints of Reaction mh7 To Medicine. 02:47 The patient presents to the emergency department with anxiety, Possibly reaction to mh7 medication. 02:56 Onset: The symptoms/episode began/occurred 2 day(s) ago. Past psychiatric history: mh7 Prior diagnosis: Anxiety, Psychiatric medications include: Prozac, Trazadone, Primary psychiatric physician: the patient does not have a primary psychiatric physician, the patient has not had a prior suicide gesture, the patient does not have a previous inpatient psychiatric history, the patient's last psychiatric treatment was none. Associated signs and symptoms: Pertinent positives; anxiety, Pertinent negatives: abdominal pain, chest pain, chills, delusions, depression, fever, hallucinations, headache, homicidal ideation, nausea, night sweats, palpitations, paranoia, shortness of breath, substance abuse, suicide ideation, tremor, vomiting. Severity of symptoms: At their worst the symptoms were moderate last night, in the emergency department the symptoms are unchanged. States that he was started on Trazodone about 2 weeks ago for anxiety. He has been taking Paroxetine for the past month for anxiety. He believes that his medication is causing him to feel anxious. He has also been taking medication for sinus congestion including Sudafed. Also states he has had difficulty sleeping over past few days.. Historical: - Allergies: 02: No Known Allergies; - Home Meds: 02: Hydroxyzine Oral 3 times per day [Active]; amlodipine oral once daily [Active]; wh paroxetine oral oral [Active]; trazodone Oral [Active]; - PMHx: 02:28 Anxiety; Colitis; Sleep Apnea; testicular cancer; - Immunization history:: Adult Immunizations not up to date. - Social history:: Smoking status: Patient/guardian denies using. ROS: 02:56 Constitutional: Negative for fever, chills, and weight loss, Eyes: Negative for injury, mh7 pain, redness, and discharge, ENT: Negative for injury, pain, and discharge, Neck: Negative for injury, pain, and swelling, Cardiovascular: Negative for chest pain, palpitations, and edema, Respiratory: Negative for shortness of breath, cough, wheezing, and pleuritic chest pain, Abdomen/GI: Negative for abdominal pain, nausea, vomiting, diarrhea, and constipation, Back: Negative for injury and pain, : Negative for injury, bleeding, discharge, and swelling, MS/Extremity: Negative for injury and deformity, Skin: Negative for injury, rash, and discoloration, Neuro: Negative for headache, weakness, numbness, tingling, and seizure, Allergy/Immunology: Negative for hives, rash, and allergies, Endocrine: Negative for neck swelling, polydipsia, polyuria, polyphagia, and marked weight changes, Hematologic/Lymphatic: Negative for swollen nodes, abnormal bleeding, and unusual bruising. Exam: 02:56 Head/Face: Normocephalic, atraumatic. Eyes: Pupils equal round and reactive to light, mh7 extra-ocular motions intact. Lids and lashes normal. Conjunctiva and sclera are non-icteric and not injected. Cornea within normal limits. Periorbital areas with no swelling, redness, or edema. ENT: Nares patent. No nasal discharge, no septal abnormalities noted. Tympanic membranes are normal and external auditory canals are clear. Oropharynx with no redness, swelling, or masses, exudates, or evidence of obstruction, uvula midline. Mucous membranes moist. Neck: Trachea midline, no thyromegaly or masses palpated, and no cervical lymphadenopathy. Supple, full range of motion without nuchal rigidity, or vertebral point tenderness. No Meningismus. Chest/axilla: Normal chest wall appearance and motion. Nontender with no deformity. No lesions are appreciated. Cardiovascular: Regular rate and rhythm with a normal S1 and S2. No gallops, murmurs, or rubs. Normal PMI, no JVD. No pulse deficits. Respiratory: Lungs have equal breath sounds bilaterally, clear to auscultation and percussion. No rales, rhonchi or wheezes noted. No increased work of breathing, no retractions or nasal flaring. Abdomen/GI: Soft, non-tender, with normal bowel sounds. No distension or tympany. No guarding or rebound. No evidence of tenderness throughout. Back: No spinal tenderness. No costovertebral tenderness. Full range of motion. Skin: Warm, dry with normal turgor. Normal color with no rashes, no lesions, and no evidence of cellulitis. MS/ Extremity: Pulses equal, no cyanosis. Neurovascular intact. Full, normal range of motion. Neuro: Awake and alert, GCS 15, oriented to person, place, time, and situation. Cranial nerves II-XII grossly intact. Motor strength 5/5 in all extremities. Sensory grossly intact. Cerebellar exam normal. Normal gait. 02:56 Constitutional: The patient appears in no acute distress, alert, awake, anxious. 02:56 Psych: Behavior/mood is cooperative, anxious, Affect is calm, Oriented to person, place, time, Patient has no thoughts/intents to harm self or others. Judgement / Insight is normal. Memory is normal. Delusions/hallucinations are not present. Vital Signs: 02:24 BP 151 / 97; Pulse 88; Resp 18; Temp 98.; Pulse Ox 98% ; Weight 95.25 kg; Height 5 ft. wh 7 in. (170.18 cm); 04:03 BP 146 / 93; Pulse 80; Resp 18; Pulse Ox 94% on R/A; mg2 04:54 BP 136 / 83; Pulse 89; Resp 18; Pulse Ox 95% on R/A; mg2 02:24 Body Mass Index 32.89 (95.25 kg, 170.18 cm) wh MDM: 04:56 Differential diagnosis: drug withdrawal. Medication adverse reaction, anxiety. Data [facility] reviewed: vital signs, nurses notes, lab test result(s), CBC, electrolytes, urinalysis, urine drug screen. Data interpreted: Pulse oximetry: on room air is 97 %. Interpretation: normal. Counseling: I had a detailed discussion with the patient and/or guardian regarding: the historical points, exam findings, and any diagnostic results supporting the discharge/admit diagnosis, the presence of at least one elevated blood pressure reading (>120/80) during this emergency department visit, lab results, the need for outpatient follow up, to return to the emergency department if symptoms worsen or persist or if there are any questions or concerns that arise at home. Response to treatment: the patient's symptoms have resolved after treatment, the patient's blood pressure is in an acceptable range, mental status has returned to baseline, the patient no longer shows bradycardia, the patient is not short of breath, the patient is not tachycardic, the patient's pain is gone, the patient's temperature has normalized. 04:59 Patient medically screened. [facility] 04/12 02:38 Order name: Acetaminophen [facility] 04/12 02:38 Order name: Basic Metabolic Panel [facility] 04/12 02:38 Order name: CBC with Diff [facility] 04/12 02:38 Order name: ETOH Level; Complete Time: 03:33 [facility] 04/12 02:38 Order name: Hepatic Function; Complete Time: 03:33 [facility] 04/12 02:38 Order name: PT-INR; Complete Time: 03:33 [facility] 04/12 02:38 Order name: Ptt, Activated; Complete Time: 03:33 [facility] 04/12 02:38 Order name: Salicylate; Complete Time: 03:33 [facility] 04/12 02:38 Order name: Urine Drug Screen; Complete Time: 03:33 [facility] 04/12 02:39 Order name: Acetaminophen Level; Complete Time: 03:33 [facility] 04/12 02:39 Order name: Basic Metabolic Panel; Complete Time: 03:33 [facility] 04/12 02:39 Order name: CBC with Automated Diff; Complete Time: 03:07 [facility] 04/12 03:15 Order name: Urine Dipstick--Ancillary (enter results); Complete Time: 03:33 [facility] 04/12 02:38 Order name: EKG; Complete Time: 02:39 [facility] 04/12 02:38 Order name: EKG - Nurse/Tech; Complete Time: 02:54 [facility] 04/12 02:38 Order name: IV Saline Lock; Complete Time: 02:54 [facility] 04/12 02:38 Order name: Labs collected and sent; Complete Time: 02:54 [facility] 04/12 02:38 Order name: Urine Dipstick-Ancillary (obtain specimen); Complete Time: 03:01 [facility] Administered Medications: 04:26 Drug: Ativan 1 mg {Note: RASS 0.} Route: IVP; Site: right antecubital; 04:59 Follow up: Response: No adverse reaction mg2 Disposition: 04/12/20 04:59 Discharged to Home. Impression: Anxiety, Medication Adverse Reaction. - Condition is Stable. - Discharge Instructions: Generalized Anxiety Disorder. - Medication Reconciliation Form, Thank You Letter, Antibiotic Education, Prescription Opioid Use form. - Follow up: Private Physician; When: 1 - 2 days; Reason: Worsening of condition, Recheck today's complaints, Continuance of care, Re-evaluation by your physician. - Problem is an acute exacerbation. - Symptoms have improved. Signatures: Dispatcher [employer] EDCT Morgan Katz RN RN Sanjay Wray RN RN [facility] Robb Arenas MD MD mh7 Corrections: (The following items were deleted from the chart) 05:06 04:59 04/12/2020 04:59 Discharged to Home. Impression: Anxiety; Medication Adverse mg2 Reaction. Condition is Stable. Forms are Medication Reconciliation Form, Thank You Letter, Antibiotic Education, Prescription Opioid Use. Follow up: Private Physician; When: 1 - 2 days; Reason: Worsening of condition, Recheck today's complaints, Continuance of care, Re-evaluation by your physician. Problem is an acute exacerbation. Symptoms have improved. mh7
--- NOTE | 2020-04-12 05:01 | ER ---
Nurse's Notes [facility] Name: Frances[facility] Mar[facility] Age: 39 yrs Sex: Male : 1980 Arrival Date: 04/12/2020 Time: 02:08 Bed 5 Private MD: Diagnosis: Anxiety;Medication Adverse Reaction Presentation: 04/12 02:24 Chief complaint: Patient states: Pt dealing with congestion for 3 weeks now, taking Flonase. Pt thinks congestion is triggering his anxiety and he cant sleep. Coronavirus screen: Client denies travel out of the [place] in the last 14 days. congestion, Client presents with at least one sign or symptom that may indicate coronavirus-19. Standard/surgical mask placed on the client. Ebola Screen: Patient negative for fever greater than or equal to 101.5 degrees Fahrenheit, and additional compatible Ebola Virus Disease symptoms Patient denies exposure to infectious person. Initial Sepsis Screen: Does the patient meet any 2 criteria? No. Patient's initial sepsis screen is negative. Does the patient have a suspected source of infection? No. Patient's initial sepsis screen is negative. Risk Assessment: Do you want to hurt yourself or someone else? Patient reports no desire to harm self or others. Onset of symptoms was April 12, 2020. 02:24 Method Of Arrival: Ambulatory 02:24 Acuity: LONA 4 Historical: - Allergies: 02: No Known Allergies; - Home Meds: 02:28 Hydroxyzine Oral 3 times per day [Active]; amlodipine oral once daily [Active]; paroxetine oral oral [Active]; trazodone Oral [Active]; - PMHx: 02:28 Anxiety; Colitis; Sleep Apnea; testicular cancer; - Immunization history:: Adult Immunizations not up to date. - Social history:: Smoking status: Patient/guardian denies using. Screenin:26 Abuse screen: Denies threats or abuse. Denies injuries from another. Nutritional mg2 screening: No deficits noted. Tuberculosis screening: No symptoms or risk factors identified. Fall Risk None identified. Assessment: 02:26 General: Appears in no apparent distress. comfortable, Behavior is anxious. Pain: mg2 Denies pain. Neuro: Level of Consciousness is awake, alert, obeys commands, Oriented to person, place, time, situation. Cardiovascular: Capillary refill < 3 seconds Patient's skin is warm and dry. Respiratory: Airway is patent Respiratory effort is even, unlabored, Respiratory pattern is regular, symmetrical. GI: No signs and/or symptoms were reported involving the gastrointestinal system. : No signs and/or symptoms were reported regarding the genitourinary system. EENT: No signs and/or symptoms were reported regarding the EENT system. Derm: Skin is intact, is healthy with good turgor, Skin is pink, warm \T\ dry. normal. Musculoskeletal: Circulation, motion, and sensation intact. Capillary refill < 3 seconds. 03:30 Reassessment: Patient appears in no apparent distress at this time. Patient and/or mg2 family updated on plan of care and expected duration. Pain level reassessed. Patient is alert, oriented x 3, equal unlabored respirations, skin warm/dry/pink. 04:58 Reassessment: patient feels better. mother contacted and she is in the parking lot [facility] waiting for his discharge. Vital Signs: 02:24 BP 151 / 97; Pulse 88; Resp 18; Temp 98.; Pulse Ox 98% ; Weight 95.25 kg; Height 5 ft. 7 in. (170.18 cm); 04:03 BP 146 / 93; Pulse 80; Resp 18; Pulse Ox 94% on R/A; mg2 04:54 BP 136 / 83; Pulse 89; Resp 18; Pulse Ox 95% on R/A; mg2 02:24 Body Mass Index 32.89 (95.25 kg, 170.18 cm) ED Course: 02:08 Patient arrived in ED. cl3 02:20 Sanjay Wray RN is Primary Nurse. mg2 02:20 Robb Arenas MD is Attending Physician. mh7 02:25 Triage completed. 02:27 Patient has correct armband on for positive identification. mg2 02:28 Arm band placed on right wrist. 02:45 Inserted saline lock: 20 gauge in right antecubital area, using aseptic technique. mg2 Blood collected. 02:55 No provider procedures requiring assistance completed. mg2 05:06 IV discontinued, intact, bleeding controlled, No redness/swelling at site. Pressure mg2 dressing applied. Administered Medications: 04:26 Drug: Ativan 1 mg {Note: RASS 0.} Route: IVP; Site: right antecubital; 04:59 Follow up: Response: No adverse reaction mg2 Outcome: 04:59 Discharge ordered by . addy 05:06 Discharged to home ambulatory, with family. mg2 05:06 Condition: stable 05:06 Discharge instructions given to patient, Instructed on discharge instructions, follow up and referral plans. Demonstrated understanding of instructions, follow-up care. 05:06 Patient left the ED. mg2 Signatures: Morgan Katz RN RN Sanjay Wray RN RN mg2 Bereket Healy cl3 Robb Arenas MD MD mh7
--- NOTE | 2020-04-13 17:12 | EKG ---
Test Date: 2020-04-12 Test Time: 02:44:10 [employer]ven Builder: MG MEASUREMENT RESULTS: Intervals: Rate: 78 SC: 152 QRSD: 84 QT: 342 QTc: 389 Damar: P: 59 SC: 152 QRS: -30 T: 23 INTERPRETIVE STATEMENTS: Normal sinus rhythm Left axis deviation Abnormal ECG Compared to ECG 03/22/2020 13:41:03 Left-axis deviation now present Electronically Signed On 04-13-20 17:06:38 [employer] by Yovanny Mendoza
== END 2020-04-12 05:06 | disposition home or self-care (01) ==
LOC: ER 02:06
DX: F41.9 Anxiety disorder, unspecified (principal); T50.995A Adverse effect of other drugs, medicaments and biological substances, initial encounter; Z85.47 Personal history of malignant neoplasm of testis
CPT/HCPCS: 36415; 80048; 80076; 80307; 80320; 80329; 81003; 85025; 85610; 85730; 93005; 96374; 99283

== ENCOUNTER 2020-07-13 01:43 | Emergency (ER) | payer SELFPAY ==
--- OUTSIDE RECORDS SUMMARY | 2020-07-13 01:46 | XMS REPORT | Continuity of Care Document ---
:1980 Author Organization [facility] t Address [address] [place] [address] Care Team Providers Name Role Phone Sultana Hatch MD Attending Clinician True Redding DO Attending Clinician Doctor Unassigned, [...] Date/Time Type Type Clinicians Facility Department ID 2020-07-05 2020-07-06 [facility] [id number] 22:49:00 00:14:00 Clint Aguirre [id number] [place] [id number] [place] [id number] 2020-03-06 2020-03-07 Emergency [facility] [id number] 23:45:00 00:09:00 Micheline Aguirre [id number] [place] [id number] [place] [id number] 2019-11-26 2019-11-26 Emergency [facility] [id number] 03:54:00 05:42:00 Micheline Aguirre [id number] [place] [id number] [place] [id number] 2019-11-26 2019-11-26 Orders Doctor ALEX [id number] 00:00:00 00:00:00 Only Unassigned, JUANJO [id number] [place] [facility] [phone] [id number] 2019-09-13 2019-09-14 Emergency [facility] [id number] 22:39:53 02:14:00 Vince Timothy [id number] [place] [id number] [place] [id number] 2019-04-17 2019-04-17 [facility] [id number] 00:20:51 01:34:00 Micheline Aguirre [id number] [place] [id number] [place] [id number] Results This patient has no known results.
--- NOTE | 2020-07-13 02:49 | ER ---
Nurse's Notes [facility] Name: Francesco Marr Age: 40 yrs Sex: Male : 1980 Arrival Date: 07/13/2020 Time: 01:48 Bed Waiting Private MD: Diagnosis: Presentation: 07/13 02:16 Chief complaint: Patient states: Chest pain started around 9pm tonight to mid chest iw area. Adin lightheaded, dizzy and vomited x1. Patient has a history of anxiety. Also having some blurred vision that started tonight. 02:16 Method Of Arrival: Ambulatory iw 02:16 Acuity: LONA 3 iw 02:23 Coronavirus screen: Client denies travel out of the [place] in the last 14 days. At this iw time, the client does not indicate any symptoms associated with coronavirus-19. Historical: - Allergies: 02:25 No Known Allergies; iw - Home Meds: 02:25 amlodipine 10 mg oral tab 1 tab once daily for Hypertension [Active]; Zoloft 25 mg Oral iw tab 1 tab once daily for Anxiety with Depression [Active]; - PMHx: 02:25 Anxiety; Colitis; Sleep Apnea; testicular cancer; iw - Immunization history:: Client reports having NOT received the Covid vaccine. Vital Signs: 02:16 BP 130 / 92; Pulse 77; Resp 16; Temp 96.8; Pulse Ox 99% ; Weight 88.45 kg; Height 5 ft. iw 7 in. (170.18 cm); Pain 6/10; 02:16 Body Mass Index 30.54 (88.45 kg, 170.18 cm) iw ED Course: 01:48 Patient arrived in ED. es 02:23 Triage completed. iw Administered Medications: No medications were administered Outcome: 02:48 Patient left the ED. tt3 Signatures: Tori Hernández Irene, RN RN iw Yoni Crook tt3
[2020-07-13 02:57] VITALS: BP 130/92; TEMP 96.8; O2SAT 99
== END 2020-07-13 02:48 | disposition left against medical advice (07) ==
LOC: ER 01:43
DX: Z53.21 Procedure and treatment not carried out due to patient leaving prior to being seen by health care provider (principal)
CPT/HCPCS: 99281